=== PATIENT | male | born 1950 | race Caucasian/White ===

== ENCOUNTER 2020-02-07 09:44 | Emergency (ER) | payer MEDICARE, SELFPAY ==
[2020-02-07 09:53] VITALS: BP 123/76; PULSE 72; RESP 20; TEMP 37.1; O2SAT 100
--- NOTE | 2020-02-07 10:05 | ED.WOUNDLAC ---
HPI - Wound/Laceration General Chief Complaint: Wound/Laceration Stated Complaint: rt hand pos infection Time Seen by Provider: 02/07/20 10:23 Source: patient and RN notes reviewed Mode of arrival: ambulatory Limitations: no limitations History of Present Illness HPI narrative: 69-year-old male presents with concern for dog bite. He reports he was playing with a dog 2 days ago whose tooth cut his second digit of the right hand. Reports yesterday he noticed swelling and redness of the finger. He put ice on the finger and took ibuprofen. He denies fever, general malaise, aches, chills, sweats. Denies drainage from the wound. Related Data Home Medications Medication Instructions Recorded Confirmed Eye Vitamin 10/06/19 fluticasone propionate 50 2 spray NASAL DAILY PRN 11/28/19 02/07/20 mcg/actuation nasal spray,suspension Allergies Allergy/AdvReac Type Severity Reaction Status Date / Time Penicillins Allergy Unknown Unknown Verified 02/07/20 10:00 Review of Systems Review of Systems: Narrative: CONSTITUTIONAL: Denies malaise, chills, sweats, or fever. CARDIOVASCULAR: Denies chest pain, palpitations RESPIRATORY: Denies cough or dyspnea. GASTROINTESTINAL: Denies abdominal pain, nausea, vomiting, diarrhea SKIN: Reports swollen, red, tender second digit of the right hand. Reports puncture wound with a scab. MUSCULOSKELETAL: Denies myalgia. NEUROLOGIC: Denies numbness, weakness All systems reviewed & are unremarkable except as noted in HPI and below PMFSH Past Medical History Medical History (Updated 02/07/20 @ 10:31 by Fatuma Mclean NP) Acquired leg length discrepancy Arthritis of knee, right Hypertension Lymphoma Seizures Skull fracture Surgical History Surgical History Distal radius fracture (~10/06/19) H/O brain surgery History of appendectomy Hx of tonsillectomy Social History Social History Smoking status: Never smoker Second hand tobacco smoke exposure: No Alcohol intake: current Substance use: unknown Gender identity (if verbalized by the patient): Male Spiritual care concerns: No Comments At time of signature, agree with nursing past medical, surgical, social and family history. There is no relevant family history pertinent to the presenting complaint Exam Narrative: Exam Narrative: GENERAL: Well-appearing, well-nourished, and in no acute distress. HEAD: Normocephalic, atraumatic. EYES: PERRLA, conjunctivae clear NECK: Supple. CHEST: Speaks in full sentences. No respiratory distress. HEART: Regular rate and rhythm. Normal and equal peripheral pulses. EXTREMITIES: Right hand and digits of hand have normal strength and sensation. 5/5 strength with second digit flexion, extension. Range of motion normal. No clubbing, cyanosis, or edema noted. Tenderness to the second digit. Skin intact. Normal digital cascade with flexion of fingers, median, ulnar and radial nerve intact. Normal sensation of each side of finger. Can perform 'okay' sign, 'cross over finger test of index and middle fingers' and 'thumbs up' sign. No scissoring. Normal thumb opposition. Good capillary refill and radial pulse. Distal capillary refill ?3 seconds. SKIN: Warm, dry, no rash. Erythema, edema, tenderness, no induration noted to the second digit of the right hand. Less than 0.5cm scabbed wound noted near the PIP joint of the second digit of the right hand NEURO: Alert and oriented x3. Dorsal aspect of right hand and wrist with erythema, no tenderness, no edema, no induration. Mild red area extending into the lower forearm. PSYCH: Normal mood and affect Course Course Emergency Course: Discussed with patient to monitor red area on forearm, if he develops malaise, fever, chills, sweats or the area progresses he should go to the emergency room; if symptoms worsen or do not improve the next 24 hours he
== END 2020-02-07 10:46 | disposition home or self-care (01) ==
PROVIDERS: Emergency Provider Nurse Practitioner; PCP Family Medicine
DX: L08.9 Local infection of the skin and subcutaneous tissue, unspecified (principal); S61.451A Open bite of right hand, initial encounter; W54.0XXA Bitten by dog, initial encounter; M17.11 Unilateral primary osteoarthritis, right knee; I10 Essential (primary) hypertension; Z85.72 Personal history of non-Hodgkin lymphomas
CPT/HCPCS: 99213; G0463

== ENCOUNTER 2020-04-26 14:51 | Outpatient (CLI) | payer MEDICARE, SELFPAY ==
[2020-04-26 15:03] LABS: Basophils Percent Auto 0.7 % (0.2-1.2); Eosinophils Absolute Auto 0.2 K/mm3 (0-0.3); Eosinophils Percent Auto 3.7 % (0-4.4); Hematocrit 38.1 % (42.0-52.0); Hemoglobin 12.8 g/dL (14.0-18.0); Lymphocytes Absolute Auto 1.48 K/mm3 (0.9-3.2); Lymphocytes Percent Auto 36.9 % (18.3-44.2); Mean Corpuscular HGB Conc 33.6 g/dl (32-36); Mean Corpuscular Hemoglobin 30.1 pg (26-34); Mean Corpuscular Volume 89.6 fl (80-100); Mean Platelet Volume 9.9 fl (7.4-10.4); Monocytes Absolute Auto 0.4 K/mm3 (0.1-0.6); Monocytes Percent Auto 10.5 % (2.6-8.5); Neutrophils Absolute Auto 1.9 K/mm3 (1.3-6.7); Neutrophils Percent Auto 48.2 % (45.5-73.1); Platelet Count Result 156 k/mm3 (150-375); Red Blood Count 4.25 M/mm3 (4.6-6.20); Red Cell Distribution Width 13.7 % (11.5-14.5)
[2020-04-26 16:47] LABS: Alanine Aminotransferase 17 U/L (4-50); Albumin Level 4.3 g/dL (3.5-5.1); Alkaline Phosphatase 89 U/L (38-126); Aspartate Amino Transferase 24 U/L (17-59); Bilirubin,Total 0.4 mg/dL (0.2-1.3); Blood Urea Nitrogen 18 mg/dL (9-20); Calcium 9.1 mg/dL (8.4-10.2); Carbon Dioxide 26 mmol/L (22-30); Chloride 103 mmol/L (98-107); Estimated Glomerular Filt Rate > 60; Glucose 96 mg/dL (75-110); Lactate Dehydrogenase 486 U/L (313-618); Potassium 4.6 mmol/L (3.4-5.0); Sodium 136 mmol/L (137-145)
== END 2020-04-26 14:52 | disposition home or self-care (01) ==
LOC: ANHLAB 14:53
PROVIDERS: PCP Family Medicine; Visit Provider Internal Medicine Hematology & Oncology
DX: C85.13 Unspecified B-cell lymphoma, intra-abdominal lymph nodes (principal)
CPT/HCPCS: 36415; 80053; 83615; 85025

== ENCOUNTER 2020-05-26 10:36 | Outpatient (CLI) | payer MEDICARE, SELFPAY ==
--- NOTE | ~2020-05-26 | US_ITS ---
EXAMINATION: US soft tissue groin RT DATE: 05/26/2020 12:17 INDICATION: Lower abdominal pain and palpable abnormality at the right inguinal region TECHNIQUE: Multiple grayscale and Doppler ultrasound images of the right groin were obtained includin g imaging during Valsalva. COMPARISON: None FINDINGS: No evident inguinal hernia. The right common femoral artery and vein appear normal. No abnormal luke s or fluid collections identified at the region of concern. IMPRESSION: 1. No etiology identified for pain and palpable abnormality at the right inguinal region. Specificall y no right inguinal hernia or abnormal mass or fluid collections. Reviewed, dictated and finalized at location A. IMPRESSION: 1. No etiology identified for pain and palpable abnormality at the right inguin al region. Specifically no right inguinal hernia or abnormal mass or fluid rigoberto ections.
== END 2020-05-26 10:37 | disposition home or self-care (01) ==
LOC: ANHIMG 10:41
PROVIDERS: PCP Family Medicine; Visit Provider Family Medicine
DX: R10.30 Lower abdominal pain, unspecified (principal); M79.89 Other specified soft tissue disorders
CPT/HCPCS: 76882

== ENCOUNTER 2020-10-09 00:38 | Outpatient (CLI) | payer MEDICARE, SELFPAY ==
[2020-10-09 21:19] LABS: SARS-CoV-2 RNA PCR Negative
== END 2020-10-09 00:39 | disposition home or self-care (01) ==
LOC: ANHCOVIDDT 00:38
PROVIDERS: PCP Family Medicine; Visit Provider Surgery
DX: Z01.812 Encounter for preprocedural laboratory examination (principal); Z20.828 Contact with and (suspected) exposure to other viral communicable diseases
CPT/HCPCS: 87635; C9803; U0003

== ENCOUNTER 2020-10-11 08:12 | Outpatient (CLI) | payer MEDICARE, SELFPAY ==
--- NOTE | 2020-10-11 08:14 | ECG_ITS ---
Measurements Intervals [place] Rate: 61 P: 62 CO: 177 QRS: 39 QRSD: 101 T: 47 QT: 423 QTc: 429 Interpretive Statements SINUS RHYTHM DELAYED PRECORDIAL R/S TRANSITION BORDERLINE ECG Electronically Signed On 10-11-2020 8:39:42 GREEN FEED ATTENDANT by Mohinder Bo D.O.
== END 2020-10-11 08:13 | disposition home or self-care (01) ==
PROVIDERS: PCP Family Medicine; Visit Provider Surgery
DX: Z01.818 Encounter for other preprocedural examination (principal); K40.90 Unilateral inguinal hernia, without obstruction or gangrene, not specified as recurrent
CPT/HCPCS: 36415; 86850; 86900; 86901; 93005

== ENCOUNTER 2020-10-13 01:08 | Day surgery (SDC) | payer MEDICARE, SELFPAY ==
[2020-10-04 13:04] VITALS: BMI 23.0
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
[2020-10-13] VITALS (12 sets, daily range): BP systolic 102–153; BP diastolic 50–82; PULSE 56–65; RESP 14–18; TEMP 35.9–36.2; O2SAT 94–100
[2020-10-13] MEDS: LACTATED RINGERS 1,000 ML 30 ML IV CONT ×2 (08:10→11:08)
[2020-10-13] MEDS: ACETAMINOPHEN 500 MG TABLET 1000 MG PO (08:23)
[2020-10-13] MEDS: KETOROLAC 15 MG/ML VIAL (*BKC) IV PUSH (08:25)
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
--- NOTE | 2020-10-13 08:43 | WPDHPUPDATE1 ---
History and Physical Update Update Date/Time: 10/13/20 08:43 History and Physical has been reviewed, including an updated exam of the patient. There are NO changes in the patient's condition. Risks, benefits, and alternatives have been discussed and questions answered. Patient agrees to proceed with procedure.
[2020-10-13] MEDS: CLINDAMYCIN 900 MG/D5W 50 ML 900 MG/50 ML PIGGYBACK 50 MG IVPB (09:35)
--- NOTE | 2020-10-13 10:58 | PM.PROC ---
Procedure Note - Detailed Date of procedure: 10/13/20 Pre-op diagnosis: Right Inguinal Hernia Post-op diagnosis: same (Indirect RIH) Procedure performed: Laparoscopic right inguinal hernia repair with Progrip mesh, da Javad assisted Description of procedure: Procedure as well as risks, benefits, and alternatives were discussed with the patient. Written consent was obtained and placed in chart prior to procedure. Patient was brought back to surgical suite. He was placed supine on operating table. Time-out was done to confirm patient and procedure. He was then intubated by Anesthesia Department. His abdomen was prepped and draped in sterile fashion using chlorhexidine prep. 0.5% bupivacaine with epinephrine was infiltrated at each location for incision. A 12 millimeter transverse incision was made just superior to the umbilicus using a 15 blade scalpel. Blunt dissection was carried out down to the linea alba. A vertical incision was made at the linea alba using a 15 blade scalpel. The peritoneum was then bluntly entered. A 12 millimeter trocar was inserted and carbon dioxide insufflation was used to create a pneumoperitoneum. A camera was inserted and the abdominal cavity was inspected. The patient was placed in slight Trendelenburg position. An 8 millimeter incision was made on the right lateral abdomen and an 8 millimeter trocar was inserted under direct visualization. Another 8 millimeter incision was made in the left lateral abdomen and an 8 millimeter trocar was inserted under direct visualization. The robotic arms were brought up to the patient's bedside and secured to the ports. The camera and instruments were inserted. I then moved over to the robotic console and took control of the camera and instruments. After careful inspection of the abdominal cavity, I began scoring the peritoneum along the right lower quadrant using scissors with electrocautery. The preperitoneal plane was entered and this was carefully dissected caudally along the inferior epigastric vessels. Careful dissection with scissors with electrocautery and blunt dissection was used to continue this dissection. I dissected far enough laterally to allow for mesh placement, and also dissected medially to identify the pubic arch and Hector's ligament. The hernia sac was identified and carefully dissected posteriorly. The cord contents were also identified and the peritoneum was carefully dissected far enough posteriorly to allow for mesh placement. Once an adequate pocket was created, I then placed the mesh within the preperitoneal pocket and carefully unfolded it. The mesh was centered on the hernia defect with adequate overlap circumferentially. The inferior edge of the mesh was inspected to ensure that it was far enough away from the peritoneal edge. The mesh appeared in proper position overlying the entire myopectineal orifice. The peritoneum was then closed over the mesh using a 3-0 V-lock running absorbable suture. The robotic instruments were removed. The robotic arms were disengaged from the ports and moved away from the bedside. The patient was flattened out in bed, the ports were removed under direct visualization, and the pneumoperitoneum was released. The fascia of the umbilical incision was approximated using an 0 Vicryl [id number] suture. The skin of the incisions was approximated using 4-0 Monocryl subcuticular suture, and Exofin glue was applied on top. The patient was awakened from anesthesia, extubated, and transferred to recovery. Implants: Progrip Mesh 10cm x 15cm Anesthesia: GETA and local (0.5% bupivicaine with epi) Surgeon: Fuad Murray DO Estimated blood loss (mL): 5 Drains: No Packing: No Pathology: none sent Complications: No immediate complications Condition: stable Disposition: same day Findings: Laparoscopic right inguinal hernia repair was performed. The patient was found to have a moderate-sized indirect right inguinal hernia.
--- NOTE | 2020-10-13 11:46 | SUR.PHASEI ---
1143 - dr. sage at bedside talking with pt.
--- NOTE | 2020-10-13 13:36 | SUR.PHASEII ---
1315- ambulated pt to bathroom. Gait steady. Passed only short dribble of urine. Assisted back to room.
--- NOTE | 2020-10-13 13:37 | SUR.PHASEII ---
1330- attempted to contact pt . Left message with her voicemail.
--- NOTE | 2020-10-13 14:49 | SUR.PHASEII ---
1430- voided a daphne of 3 times. pt dressed and waiting for .
== END 2020-10-13 14:45 | disposition home or self-care (01) ==
PROVIDERS: PCP Family Medicine; Visit Provider Surgery
PROC: 8E0Y4CZ Robotic Assisted Procedure of Lower Extremity, Percutaneous Endoscopic Approach (ICD-10-PCS; CPT 49650; principal; 2020-10-13 09:45)
DX: K40.90 Unilateral inguinal hernia, without obstruction or gangrene, not specified as recurrent (principal); I10 Essential (primary) hypertension; G40.909 Epilepsy, unspecified, not intractable, without status epilepticus; Z85.72 Personal history of non-Hodgkin lymphomas; Z92.21 Personal history of antineoplastic chemotherapy
CPT/HCPCS: 49650; S2900; 36415; 86850; 86900; 86901; 87635; 93005; A9270; C1781; C9803; J1100; J1170; J1885; J2250; J2370; J2405; J2704; J2710; J3010; J7120; U0003

== ENCOUNTER 2020-10-15 18:48 | Emergency (ER) | payer MEDICARE, SELFPAY ==
--- NOTE | ~2020-10-15 | XR_ITS ---
EXAMINATION: XR abdomen obstructive series DATE: 10/15/2020 19:47 INDICATION: Abdominal pain and difficulty urinating. Constipation. TECHNIQUE: Frontal supine and upright views of the abdomen were obtained. COMPARISON: CT dated 04/14/2019 FINDINGS: Large amount of stool scattered throughout the colon extending to the rectum consistent with given hi story of constipation. No dilated gas-filled loops of bowel. No free intraperitoneal gas. Calcified n odule at the left lower lung zone consistent with old granulomatous disease. Cardiomegaly. Chronic ri ght pelvic fractures. Partially visualized antegrade intramedullary bill and interlocking intratrochan teric screw fixation at the proximal left femur. There are couple additional lag screws transfixing t he left femoral neck where there is an additional old healed fracture. Multiple old bilateral rib fra ctures. IMPRESSION: 1. Large amount of colonic stool consistent with given history of constipation. 2. Cardiomegaly. Reviewed, dictated and finalized at [facility]. TAL ENGINEER
[2020-10-15 18:51] VITALS: BP 167/96; PULSE 54; RESP 18; TEMP 35.7; O2SAT 97
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
[2020-10-15 19:41] LABS: Basophils Percent Auto 0.1 % (0.2-1.2); Hemoglobin 13.3 g/dL (14.0-18.0); Immature Granulocyte Absolute 0.03 K/mm3 (0.00-0.031); Immature Granulocyte Percent A 0.4 % (0-0.5); Lymphocytes Absolute Auto 0.68 K/mm3 (0.9-3.2); Lymphocytes Percent Auto 8.8 % (18.3-44.2); Mean Corpuscular HGB Conc 34.1 g/dl (32-36); Mean Corpuscular Hemoglobin 30.6 pg (26-34); Mean Corpuscular Volume 89.7 fl (80-100); Mean Platelet Volume 10.2 fl (7.4-10.4); Monocytes Absolute Auto 0.4 K/mm3 (0.1-0.6); Monocytes Percent Auto 5.3 % (2.6-8.5); Neutrophils Absolute Auto 6.6 K/mm3 (1.3-6.7); Neutrophils Percent Auto 85.4 % (45.5-73.1); Platelet Count Result 204 k/mm3 (150-375); Red Blood Count 4.35 M/mm3 (4.6-6.20); Red Cell Distribution Width 13.3 % (11.5-14.5); White Blood Count 7.8 K/mm3 (4.5-10.0)
[2020-10-15 19:44] LABS: Add Urine Microscopic? YES; Appearance Urine Clear (Clear); Bilirubin Urine Negative (Negative); Blood Urine Negative (Negative); Color Urine Yellow (Yellow); Glucose Urine UA Negative (Negative); Ketones Urine Negative (Negative); Leukocyte Esterase Ur Negative LEU/UL (Negative); Mucus Urine Rare /lpf; Nitrate Urine Negative (Negative); Protein Urine Negative (Negative); Specific Grav Ur 1.016 (1.001-1.035); Urobilinogen Urine Negative mg/dL (<2.0); WBC Urine 0-3 /hpf
[2020-10-15 19:54] LABS: Alanine Aminotransferase 30 U/L (4-50); Albumin Level 4.3 g/dL (3.5-5.1); Alkaline Phosphatase 98 U/L (38-126); Anion Gap 8 mmol/L (8-16); Aspartate Amino Transferase 25 U/L (17-59); Bilirubin,Total 0.4 mg/dL (0.2-1.3); Blood Urea Nitrogen 15 mg/dL (9-20); Calcium 9.4 mg/dL (8.4-10.2); Carbon Dioxide 30 mmol/L (22-30); Chloride 100 mmol/L (98-107); Estimated CRCL calculation 102 ml/min; Estimated Glomerular Filt Rate > 60; Glucose 149 mg/dL (75-110); Potassium 4.3 mmol/L (3.4-5.0); Sodium 138 mmol/L (137-145)
[2020-10-15 21:30] VITALS: BP 137/65; PULSE 60; RESP 18; O2SAT 98
--- NOTE | 2020-10-15 21:45 | PC.NURSE ---
gravity bag exchanged for leg bag. teaching to patient on usage done and demonstrated by patient
[2020-10-15] MEDS: TAMSULOSIN HCL 0.4 MG CAPSULE PO (21:50)
== END 2020-10-15 21:55 | disposition home or self-care (01) ==
PROVIDERS: Emergency Provider Emergency Medicine; PCP Family Medicine
DX: R33.9 Retention of urine, unspecified (principal); K59.00 Constipation, unspecified; M17.11 Unilateral primary osteoarthritis, right knee; I10 Essential (primary) hypertension; Z85.72 Personal history of non-Hodgkin lymphomas; I51.7 Cardiomegaly; Z98.890 Other specified postprocedural states
CPT/HCPCS: 36415; 74019; 80053; 81001; 85025; 99283; A9270

== ENCOUNTER 2021-01-13 08:40 | Outpatient (CLI) | payer MEDICARE, SELFPAY ==
--- NOTE | ~2021-01-13 | XR_ITS ---
EXAMINATION: XR abdomen/kub 1V INDICATION: Microscopic hematuria TECHNIQUE: Supine views of the abdomen were obtained on 2 radiographs. COMPARISON: 10/15/2020 FINDINGS: There is a large volume of colonic stool. No definite urolithiasis is identified. Orthopedi c hardware is noted in the left hip. The lung bases are clear. Chronic right pelvic fractures are aga in noted. There is moderate lumbar spondylosis. IMPRESSION: 1. No radiographic correlate for the patient's symptoms. 2. Constipation. Reviewed, dictated and finalized at location [facility]. CULTURE FARM MANAGER
--- NOTE | ~2021-01-13 | CT_ITS ---
EXAMINATION: CT abdomen pelvis wo/w con DATE: 01/13/2021 09:54 INDICATION: Microscopic hematuria TECHNIQUE: Computed tomography (CT) of the abdomen and pelvis was performed without and subsequently with 130 cc Omnipaque 350 intravenous contrast. Automated exposure control and iterative reconstructi on technique were employed. Exam dose: 791.72 mGy-cm total exam DLP. COMPARISON: January 13, 2021 KUB 04/14/2019 CT abdomen pelvis FINDINGS: There are bilateral fat-containing foramen of Bochdalek hernias. Mild bibasilar discoid ate lectasis or scarring. Normal heart size. No pericardial or pleural effusion. The liver, gallbladder, bile ducts, pancreas, pancreatic duct and spleen are unremarkable. Normal morphology of the adrenal glands. No urinary tract calculus or hydroureteronephrosis. No renal space occupying mass lesion or filling d efect of the renal collecting systems, ureters or urinary bladder is evident. There are bilateral ure teral jets. Minimal prostate calcification. Normal caliber of the abdominal aorta. No intraperitoneal or retroperitoneal or pelvic mass lesion or adenopathy or ascites. No bowel obstruction, bowel wall thickening, pneumatosis or intraperitoneal free air. Old healed left rib fractures. Old right healed pelvic fracture deformities. Compression screw and intramedullary bill of proximal le ft femur. Ankylosis at the right sacroiliac joint. IMPRESSION: No cause for microhematuria identified Bilateral fat-containing foramen of Bochdalek hernias Old right pelvic and left rib healed fractures Reviewed, dictated and finalized at [facility]. Reviewed, dictated and finalized at location [facility]. CLUB ATTENDANT
[2021-01-13 09:15] LABS: Estimated Glomerular Filt Rate > 60
== END 2021-01-13 08:41 | disposition home or self-care (01) ==
PROVIDERS: PCP Family Medicine; Visit Provider Urology
DX: R31.29 Other microscopic hematuria (principal); K44.9 Diaphragmatic hernia without obstruction or gangrene; K59.00 Constipation, unspecified
CPT/HCPCS: 74018; 74178; Q9967

== ENCOUNTER 2021-03-16 07:45 | Outpatient (CLI) | payer MEDICARE, SELFPAY ==
--- NOTE | 2021-03-16 07:53 | ECHO_ITS ---
Patient Info Name: Mike Montana Age: 70 years : 1950 Gender: Male Ht: 70 in Wt: 165 lbs BSA: 1.93 m2 HR: 66 bpm BP: 135 / 80 mmHg Heart Rhythm: Sinus Rhythm Exam Date: 03/16/2021 8:03 AM Exam Location: [facility] Patient Status: Outpatient Admit Date: 03/16/2021 Staff Ordering Physician: Franko Ng MD Soap Chipper: Tosha Sahni RDCS Attending Provider: Franko Ng MD Exam Type: CA echo doppler color flow Study Info Indications R01.1 - Cardiac murmur, unspecified Complete two-dimensional, color flow and Doppler transthoracic echocardiogram is performed. Summary 1. Complete two-dimensional, color flow and Doppler transthoracic echocardiogram is performed. 2. Left ventricular chamber dimension is normal. 3. Left ventricular systolic function is normal, estimated at 65-70%. 4. There is mildly increased left ventricular wall thickness. 5. The left ventricular diastolic function is grade I diastolic dysfunction. 6. E/e' 8 is minimally elevated. 7. Left atrial chamber dimension is moderately enlarged. 8. Right atrial chamber dimension is mildly enlarged. 9. There is mild aortic valve sclerosis. 10. There is trace aortic valve regurgitation. 11. There is mild mitral valve regurgitation. 12. There is moderate tricuspid valve regurgitation. 13. No pulmonary hypertension, estimated pulmonary arterial systolic pressure is 39 mmHg. 14. There is trace pulmonic regurgitation. Left Ventricle E/e' 8 is minimally elevated. Left ventricular chamber dimension is normal. Left ventricular systolic function is normal, estimated at 65-70%. There is mildly increased left ventricular wall thickness. The left ventricular diastolic function is grade I diastolic dysfunction. Right Ventricle Right ventricular chamber dimension is normal. Right ventricular systolic function is normal. Left Atria Left atrial chamber dimension is moderately enlarged. Right Atria Right atrial chamber dimension is mildly enlarged. Aortic Valve The aortic valve is trileaflet. There is mild aortic valve sclerosis. There is no aortic valve stenosis. There is trace aortic valve regurgitation. Pulmonic Valve There is trace pulmonic regurgitation. Mitral Valve There is no mitral valve stenosis. There is mild mitral valve regurgitation. Tricuspid Valve There is moderate tricuspid valve regurgitation. No pulmonary hypertension, estimated pulmonary arterial systolic pressure is 39 mmHg. Pericardium/Pleural There is no pericardial effusion. Inferior Vena Cava Normal inferior vena cava with >50% collapse upon inspiration consistent with normal right atrial pressure, 5 mmHg. Aorta The aortic root size at the sinus of Valsalva is normal. Left Ventricular Outflow Tract Name Value Normal LVOT 2D LVOT Diameter 2.5 cm LVOT Doppler LVOT Peak Gradient 5 mmHg LVOT Mean Gradient 2 mmHg LVOT VTI 27 cm LVOT VTI/AV VTI Ratio 0.8 LVOT Stroke Volume 134 ml
== END 2021-03-16 07:46 | disposition home or self-care (01) ==
PROVIDERS: PCP Family Medicine; Visit Provider Family Medicine
DX: R01.1 Cardiac murmur, unspecified (principal); I34.0 Nonrheumatic mitral (valve) insufficiency; I36.1 Nonrheumatic tricuspid (valve) insufficiency; I10 Essential (primary) hypertension
CPT/HCPCS: 93306

== ENCOUNTER 2021-07-12 02:10 | Emergency (ER) | payer MEDICARE, SELFPAY ==
[2021-07-12] VITALS (43 sets, daily range): BP systolic 103–158; BP diastolic 55–87; PULSE 56–74; RESP 13–18; TEMP 36.3; O2SAT 95–100
--- NOTE | ~2021-07-12 | XR_ITS ---
[[id number] ] INDICATION: Right rib pain after fall TECHNIQUE: Frontal projection of the upper right ribs, frontal projection of the lower right ribs, ob lique projection of all the right ribs, frontal inspiratory chest x-ray for interpretation. FINDINGS: There are acute right eighth, ninth, 10th, 11th and 12th rib fractures. No pneumothorax id entified. Right basilar atelectasis. Heart size normal.. There are no soft tissue abnormality seen. IMPRESSION: 1: Acute right eighth-12th rib fractures. Reviewed, dictated and finalized at location [facility].
--- NOTE | ~2021-07-12 | CT_ITS ---
EXAMINATION: CT brain wo con DATE: 07/12/2021 04:09 INDICATION: Status post fall. Chest pain. History of brain surgery. TECHNIQUE: Computed tomography (CT) of the head was performed without intravenous contrast. The dose- length product was 681.00 mGy-cm. Automated exposure control and iterative reconstruction technique w ere employed. COMPARISON: Pet/CT dated 01/15/2018 FINDINGS: Surgical changes of left frontal craniotomy with adjacent encephalomalacia. Mild generalize d atrophy. There is intracranial atherosclerosis. No acute intracranial hemorrhage, infarction, mass or mass effect. No ventriculomegaly or midline shift. Basilar cisterns are patent. Paranasal sinuses and mastoids are pneumatized. No depressed skull fractures. IMPRESSION: 1. No acute intracranial abnormality. Reviewed, dictated and finalized at location [facility].
--- NOTE | ~2021-07-12 | XR_ITS ---
XR wrist RT min 3V 07/12/2021 03:13 Indication: Right wrist pain after fall Procedure: 4 views right wrist Comparison: 12/03/2019 Findings: There is a healed distal radial metaphyseal fracture. There are degenerative changes of the radiocarpal joint. There is polyarticular osteoarthritis of the carpal joints, first carpometacarpal and MCP joints. Osteopenia. No acute fracture is identified. No significant soft tissue abnormality. Impression: 1: No acute fracture. Reviewed, dictated and finalized at location [facility]. Impression: 1: No acute fracture.
--- NOTE | ~2021-07-12 | CT_ITS ---
EXAMINATION: CT cervical spine wo con DATE: 07/12/2021 04:10 INDICATION: Status post fall. Neck pain. TECHNIQUE: Computed tomography (CT) of the cervical spine was performed without intravenous contrast. The dose-length product was 467 mGy-cm. Automated exposure control and iterative reconstruction tech nique were employed. COMPARISON: None FINDINGS: There is biapical pleural thickening/scarring. There is intracranial atherosclerosis. No ac mohegan fracture, subluxation or dislocation. There is carotid atherosclerosis. There is degenerative dis c disease at all cervical levels except C2-3. There is mild multilevel uncinate and facet degenerativ e change. There is carotid atherosclerosis. No evidence for perched facet. Odontoid process within no rmal limits. IMPRESSION: 1. No acute abnormality of the cervical spine. 2: Moderate cervical spondylosis. Reviewed, dictated and finalized at location A.
--- NOTE | ~2021-07-12 | XR_ITS ---
XR shoulder RT min 2V 07/12/2021 03:13 Indication: Right shoulder pain after fall Procedure: 4 views right shoulder Comparison: No prior studies for comparison. Findings: No fracture, subluxation or dislocation. Osteopenia. Soft tissues are unremarkable. Visuali zed lung parenchyma is unremarkable. Impression: 1: No acute bone or joint abnormality. Reviewed, dictated and finalized at location A. Impression: 1: No acute bone or joint abnormality.
--- NOTE | ~2021-07-12 | CT_ITS ---
EXAMINATION: CT chest abdomen pelvis w con DATE: 07/12/2021 07:47 CDT INDICATION: Trauma. Patient fell downstairs. TECHNIQUE: Computed tomography (CT) of the chest, abdomen, and pelvis was performed with 100 cc Omnip aque 350 intravenous contrast. The dose-length product was 521.09 mGy-cm. Automated exposure control and iterative reconstruction technique were employed. COMPARISON: CT dated 01/13/2021 FINDINGS: CHEST CT: There are acute fractures of the right ninth-12th ribs posteriorly. Trace right pleural effusion/hemo thorax. No pneumothorax. Right basilar dependent atelectasis. No endobronchial lesions. There are a f ew scattered calcified granulomas. There is left upper lobe scarring. There is apical pleural thicken ing/scarring. There is atherosclerosis. Cardiomegaly. No thoracic lymphadenopathy. ABDOMEN/PELVIS CT: Fatty infiltration of the liver. The spleen, pancreas, adrenal glands and kidneys are unremarkable. G allbladder is present. No evidence for aortic aneurysm. No abdominal lymphadenopathy. Small hiatal he rnia. There are chronic fractures of the right superior and inferior pubic rami. There are dynamic co mpression screws transfixing the left femoral neck. There is moderate osteoarthritis of the hips. IMPRESSION: 1. Multiple acute right posterior rib fractures ninth-12th ribs. Small right pleural effusion/hemotho rax. Reviewed, dictated and finalized at location A. IMPRESSION: 1. Multiple acute right posterior rib fractures ninth-12th ribs. Small right pl eural effusion/hemothorax.
--- NOTE | ~2021-07-12 | CT_ITS ---
EXAMINATION: CT thoracic lumbar wo con DATE: 07/12/2021 08:59 INDICATION: Spine injury. Chest and abdominal pain. TECHNIQUE: Computed tomography (CT) of the thoracic and lumbar spine was performed without intravenou s contrast. Automated exposure control and iterative reconstruction technique were employed. The dose -length product was 00.00 mGy-cm. COMPARISON: CT chest, abdomen, and pelvis 07/12/2021, CT abdomen and pelvis 01/13/2021 FINDINGS: CT THORACIC SPINE: There is a trace right pleural effusion. There are old healed left rib fractures. There are acute fractures of right 10th-12th ribs. There is kyphosis of thoracic spine. There is mild chronic anterior wedging of T5-T12 vertebral bodies. There is severely decreased disc height at T7-T 8 and T8-T9. There is mildly decreased disc height at multiple levels. There is moderately decreased disc height at T5-T6 and T10-T11. There is multilevel facet joint osteoarthritis, mild at most levels . On the right, there is mild neural foraminal stenosis at T10-T11. There is mild central canal steno sis at T9-T10 and T10-T11. CT LUMBAR SPINE: There is 3 degrees levocurvature of lumbar spine. There is mild chronic anterior wed ging of L4 vertebral body. There is moderately decreased disc height at L2-L3, severely decreased dis c height at L3-L4, and mildly decreased disc height at L4-L5. There is interbody fusion at L5-S1. The re is ankylosis of right sacroiliac joint. The following disc levels are specifically discussed: L1-L2: The disc does not extend beyond the endplate margin. There is mild bilateral facet joint osteo arthritis. There is no neural foraminal stenosis. There is no central canal stenosis. L2-L3: The disc is bulging. There is mild bilateral facet joint osteoarthritis. There is moderate rig ht and mild left neural foraminal stenosis. There is mild central canal stenosis. L3-L4: The disc is bulging. There is moderate bilateral facet joint osteoarthritis. There is moderate bilateral neural foraminal stenosis. There is mild central canal stenosis. L4-L5: The disc is bulging. There is moderate bilateral facet joint osteoarthritis. There is moderate right and mild left neural foraminal stenosis. There is mild central canal stenosis. L5-S1: The disc does not extend beyond the endplate margin. There is mild bilateral facet joint hyper trophy. There is no neural foraminal stenosis. There is no central canal stenosis. IMPRESSION: 1. Acute fractures of right 10th-12th ribs. 2. Severe thoracic and lumbar spondylosis. 3. Thoracic kyphosis. Reviewed, dictated and finalized at location B.
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
[2021-07-12 03:58] LABS: Estimated CRCL calculation 77 ml/min; Estimated Glomerular Filt Rate > 60
[2021-07-12] MEDS: ONDANSETRON INJ 4 MG/2 ML VIAL IV PUSH (04:56)
[2021-07-12] MEDS: MORPHINE SULFATE (*CRX) 4 MG/ML INJ IV PUSH ×2 (04:56→08:26)
== END 2021-07-12 11:15 | disposition short-term general hospital (02) ==
PROVIDERS: Emergency Medicine; Emergency Provider Emergency Medicine; PCP Family Medicine
DX: S22.41XA Multiple fractures of ribs, right side, initial encounter for closed fracture (principal); R84.9 Unspecified abnormal finding in specimens from respiratory organs and thorax; M17.11 Unilateral primary osteoarthritis, right knee; N40.0 Benign prostatic hyperplasia without lower urinary tract symptoms; I10 Essential (primary) hypertension; Z85.72 Personal history of non-Hodgkin lymphomas; M47.812 Spondylosis without myelopathy or radiculopathy, cervical region; M47.816 Spondylosis without myelopathy or radiculopathy, lumbar region; M47.814 Spondylosis without myelopathy or radiculopathy, thoracic region; W10.9XXA Fall (on) (from) unspecified stairs and steps, initial encounter
CPT/HCPCS: 70450; 71101; 71260; 72125; 72128; 72131; 73030; 73110; 74177; 96374; 96375; 96376; 99285; J2270; J2405; Q9967

== ENCOUNTER → 2021-08-12 17:05 | Outpatient (CLI) | payer MEDICARE, SELFPAY ==
--- NOTE | ~2021-08-12 | XR_ITS ---
XR chest 2V DATE: 08/12/2021 19:05 INDICATION: Multiple right rib fractures TECHNIQUE: 2 views COMPARISON: 07/12/2021 CT chest abdomen pelvis FINDINGS: Displaced lateral right rib fractures are noted at the ninth, 10th ribs a minimum. There is elevation of the right diaphragm, mild right pleural effusion but no right pneumothorax. There is mi ld infiltrate or atelectasis in the right lower lung. Diffuse osteopenia. Heart size is borderline. Aortic calcification and minimal unfolding. The left lung is clear. No left pleural effusion or pneumothorax. IMPRESSION: Multiple displaced right rib fractures, associated mild right pleural effusion, elevated right diaphragm and right basilar atelectasis Reviewed, dictated and finalized at location A. IMPRESSION: Multiple displaced right rib fractures, associated mild right pleur al effusion, elevated right diaphragm and right basilar atelectasis
== END ==
PROVIDERS: PCP Family Medicine
DX: S22.41XD Multiple fractures of ribs, right side, subsequent encounter for fracture with routine healing (principal); J94.2 Hemothorax; J90 Pleural effusion, not elsewhere classified; J98.11 Atelectasis
CPT/HCPCS: 71046

== ENCOUNTER 2021-10-04 12:47 | Outpatient (CLI) | payer MEDICARE, SELFPAY ==
--- NOTE | ~2021-10-04 | DEXA_ITS ---
Bone Density Report Name: Mike Montana Age: 70 Sex: Male Ethnicity: White Date of : 1950 Indication: prior fracture; cancer; Referring Provider: Franko Ng Study: Bone densitometry was performed. Exam Date: October 04, 2021 Accession number: [id number] Bone Density: Region BMD T-score Z-score Classification AP Spine (L1-L4) 0.718 -3.4 -2.5 Osteoporosis Femoral Neck (Right) 0.528 -3.0 -1.8 Osteoporosis Total Hip (Right) 0.571 -3.1 -2.4 Osteoporosis World Health Organization criteria for BMD impression classify patients as: Normal (T-score at or above -1.0), Osteopenia (T-score between -1.0 and -2.5), or Osteoporosis (T-score at or below -2.5). 10-year Fracture Risk: FRAX not reported because: Some T-score for Spine Total or Hip Total or Femoral Neck at or below -2.5 Clinical Information Provided by Patient: Has had a low trauma fracture Has used the following medications: Vitamin D Has the following medical conditions: Cancer Patient maximum height was 69 No regular weight bearing exercise Drinks caffeinated beverages Impression: The patient has established osteoporosis, based on the Total Spine T-score and the existence of a prior fracture. The patient has risk factors, including: previous fracture. Discussion: HIGH RISK OF FRACTURE. BONE DENSITY IS UNDESIRABLY LOW AT ONE OR MORE SKELETAL SITES, CONSISTENT WITH OSTEOPOROSIS. This patient's lowest T-score, in a patient who has previously fractured, meets the World Health Organization's (WHO) criteria for severe osteoporosis. In untreated patients, the risk of osteoporotic fracture increases approximately two-fold for each 1.0 SD decrease in T-score. Low bone density is not the only risk factor for fracture; also consider factors such as patient's age, frailty or poor health, risk of falling, risk of injury, previous osteoporotic fracture, family history of osteoporosis, cigarette smoking, low body weight, etc. Not everyone with low bone mineral density has osteoporosis; osteomalacia and other metabolic bone disorders should also be considered. Patients who have osteoporosis should be evaluated for specific diseases and conditions (secondary causes) that may cause or contribute to bone loss. The National Osteoporosis Foundation (NOF) recommends pharmacologic intervention for men with BMD at this level (a T-score of -2.5 or below). The patient should follow a healthful lifestyle (good nutrition with adequate calcium and vitamin D, and appropriate weight-bearing exercise). Follow-Up: Consider repeating this study in 2 years to reassess this patient's status, or sooner if there is some new clinical indication. Reported by: MARCELINO on 10/04/2021 1:11:00 PM. Reviewed, dictated and finalized at location ASusu BRYAN
== END 2021-10-04 12:48 | disposition home or self-care (01) ==
LOC: ANHIMG 12:50
PROVIDERS: PCP Family Medicine; Visit Provider Family Medicine
DX: M81.0 Age-related osteoporosis without current pathological fracture (principal); S22.41XA Multiple fractures of ribs, right side, initial encounter for closed fracture; Z91.89 Other specified personal risk factors, not elsewhere classified
CPT/HCPCS: 77080

== ENCOUNTER → 2021-11-02 14:08 | Outpatient (CLI) | payer MEDICARE, SELFPAY ==
--- NOTE | ~2021-11-02 | CT_ITS ---
EXAMINATION: CT knee RT wo con DATE: 11/02/2021 14:37 INDICATION: Unilateral primary osteoarthritis of right knee. TECHNIQUE: Computed tomography (CT) of the right knee was performed without intravenous contrast. Aut omated exposure control and iterative reconstruction technique were employed. The dose-length product was 260.99 mGy-cm. Volume rendered 3-D reconstructions were created by the technologist under radiol ogist supervision. COMPARISON: Right knee radiographs 09/20/2021 FINDINGS: There is varus angulation at the knee. There is an old healed fracture deformity of lateral tibial plateau and proximal tibial metaphysis. There is severe osteoarthritis of medial, lateral, an d patellofemoral compartments. There is a small knee joint effusion. IMPRESSION: 1. Severe right knee osteoarthritis. 2. Small right knee joint effusion. Reviewed, dictated and finalized at location A. WBERRY GROWER
== END ==
PROVIDERS: PCP Family Medicine; Visit Provider Nurse Practitioner Family
DX: M17.11 Unilateral primary osteoarthritis, right knee (principal); M25.461 Effusion, right knee
CPT/HCPCS: 73700

== ENCOUNTER 2022-02-10 10:17 | Outpatient (CLI) | payer MEDICARE, SELFPAY ==
--- NOTE | 2022-02-10 11:32 | ECG_ITS ---
Measurements Intervals [place] Rate: 66 P: 56 [place]: 182 QRS: 26 QRSD: 101 T: 38 QT: 391 QTc: 410 Interpretive Statements SINUS RHYTHM WITH OCCASIONAL VENTRICULAR PREMATURE COMPLEXES POSSIBLE LEFT ATRIAL ENLARGEMENT [-0.1mV P WAVE IN V1/V2] COMPARED TO ECG 10/11/2020 08:51:34 NO SIGNIFICANT CHANGES Electronically Signed On 02-10-2022 16:14:11 CDT by Anibal Kelly M.D.
[2022-02-10 12:10] LABS: Basophils Percent Auto 0.7 % (0.2-1.2); Eosinophils Absolute Auto 0.2 K/mm3 (0-0.3); Eosinophils Percent Auto 4.5 % (0-4.4); Hematocrit 39.5 % (42.0-52.0); Immature Granulocyte Absolute 0.01 K/mm3 (0.00-0.031); Immature Granulocyte Percent A 0.2 % (0-0.5); Lymphocytes Absolute Auto 1.31 K/mm3 (0.9-3.2); Lymphocytes Percent Auto 32.6 % (18.3-44.2); Mean Corpuscular HGB Conc 32.9 g/dl (32-36); Mean Platelet Volume 10.1 fl (7.4-10.4); Monocytes Absolute Auto 0.5 K/mm3 (0.1-0.6); Monocytes Percent Auto 11.2 % (2.6-8.5); Neutrophils Percent Auto 50.8 % (45.5-73.1); Platelet Count Result 155 k/mm3 (150-375); Red Blood Count 4.49 M/mm3 (4.6-6.20); Red Cell Distribution Width 14.7 % (11.5-14.5)
[2022-02-10 12:12] LABS: Urine Cotinine NEGATIVE
[2022-02-10 12:14] LABS: Add Urine Microscopic? YES; Appearance Urine Clear (Clear); Bilirubin Urine Negative (Negative); Blood Urine Negative (Negative); Color Urine Yellow (Yellow); Glucose Urine UA Negative (Negative); Ketones Urine Negative (Negative); Leukocyte Esterase Ur Negative LEU/UL (Negative); Mucus Urine Rare /lpf; Nitrate Urine Negative (Negative); Protein Urine Negative (Negative); RBC Urine 0-2 /hpf (0-2); Specific Grav Ur 1.016 (1.001-1.035); Squamous Epithelial Cell Urine Rare /hpf (Few); Urobilinogen Urine Negative mg/dL (<2.0); WBC Urine 0-3 /hpf
[2022-02-10 12:18] LABS: Prothrombin Time 12.8 Seconds (11.1-14.7)
[2022-02-10 12:19] LABS: Partial Thromboplastin Time 27.2 SECONDS (22.3-36.8)
[2022-02-10 12:25] LABS: Albumin Level 4.3 g/dL (3.5-5.1); Anion Gap 5 mmol/L (8-16); Blood Urea Nitrogen 21 mg/dL (9-20); Calcium 9.1 mg/dL (8.4-10.2); Carbon Dioxide 31 mmol/L (22-30); Chloride 104 mmol/L (98-107); Estimated Glomerular Filt Rate > 60; Glucose 92 mg/dL (65-110); Potassium 4.6 mmol/L (3.4-5.0); Sodium 140 mmol/L (137-145)
[2022-02-10 12:34] LABS: Hemoglobin A1C 5.2 % (<5.7)
== END 2022-02-10 10:18 | disposition home or self-care (01) ==
PROVIDERS: PCP Family Medicine; Visit Provider Orthopaedic Surgery
DX: Z01.818 Encounter for other preprocedural examination (principal); M17.11 Unilateral primary osteoarthritis, right knee; R94.31 Abnormal electrocardiogram [ECG] [EKG]
CPT/HCPCS: 80048; 80307; 81001; 82040; 83036; 85025; 85610; 85730; 86850; 86900; 86901; 87081; 93005

== ENCOUNTER 2022-02-13 13:32 | Outpatient (CLI) | payer MEDICARE, SELFPAY ==
[2022-02-13 14:03] LABS: Phenytoin Dilantin 13 ug/mL (10-20)
== END 2022-02-13 13:33 | disposition home or self-care (01) ==
LOC: ANHSURGERY 13:34
PROVIDERS: Anesthesiology; PCP Family Medicine; Visit Provider Orthopaedic Surgery
DX: M17.11 Unilateral primary osteoarthritis, right knee (principal); Z01.818 Encounter for other preprocedural examination
CPT/HCPCS: 36415; 80185

== ENCOUNTER 2022-02-23 18:33 | Observation (INO) | payer MEDICARE, SELFPAY ==
[2022-02-10 10:37] VITALS: BP 136/81; PULSE 62; RESP 16; TEMP 36.5; O2SAT 97; BMI 27.1
--- NOTE | 2022-02-10 10:59 | PC.NURSE ---
Report to the Outpatient Waiting Room, entrance under the green pavilion located off [facility], at time _6:00AM on date __02/22/22 . OR Time: ___7:30AM . - You and your visitor will be asked a series of questions to screen for COVID 19 for your protection. - A mask is required within the hospital. Preoperative COVID Testing Requirements: No COVID Test needed if: (proof is required; if not received patient will have Rapid Test prior to entry) - Patient has received COVID Vaccine at least 14 days prior to procedure date or - Patient has positive COVID test result within last 90 days of surgery date. COVID Test needed if above criteria is not met If not COVID vaccinated a COVID test must be conducted within 72 hours of surgery and patient is asked to isolate self from time of testing until procedure. You will go to the [facility] for your COVID testing. The [facility] site is located at the corner of [address] [facility]. You will only be called if COVID results are positive and your surgeon may reschedule your elective surgery date. Patients may have clear liquids (water, carbonated beverages, clear teas, apple juice) until 3 hours prior to surgery with a maximum of 20 ounces. - No food from midnight until time of surgery - Infants may have breast milk until 4 hours before surgery, formula 6 hours prior to surgery. - Children will be allowed to drink immediately following surgery. If applicable, please bring a bottle or sippy cup to assist with drinking. Juice, water, soda, and popsicles are readily available. For infants on formula, please bring formula the day of surgery. Pacifiers are allowed. Take the following medications with a SIP of water the morning of surgery: ___PHENOBARBITAL & PHENYTOIN Medications to discontinue per physician___HOLD ALL VITAMINS/SUPPLEMENT 3 DAYS PRE-OP last dose___02/18/22 Please no make-up, nail pakistani, hairspray, perfume, deodorant, or body powder the day of surgery. No jewelry (including any body piercings) or valuables the day of surgery, leave them at home. Please take a shower or bath the night before, or the morning of, surgery with an antibacterial soap. Wear comfortable, loose fitting clothing. Children are encouraged to wear pajamas. - Jewelry must be removed prior to entering the operating room. Rings and piercings that are not removed may be cut off. - The hospital will not accept responsibility for valuables. - Please leave all valuables, including medications, at home the day of surgery. If you are going home after surgery, a licensed boat driver must drive you home. - NO public transportation without another adult. - We recommend that an adult stay with you for 24 hours following discharge. - We also recommend that you do not drive, make important decision, drink alcoholic beverages, or take any drugs that were not prescribed by your health care provider for at least 24 hours after your discharge time. For Pediatric surgeries, we recommend two adults accompany the child home (only one inside the building at this time). One visitor will be allowed to accompany the patient into the hospital. Patients visitor will be instructed to remain with patient at all times or leave the building. We will allow the visitor to come back to the postoperative area when patient is ready. Follow any additional instructions given to you from your surgeon. Telephone instructions given to ___PATIENT and asked if any additional questions and then verbalized understanding. Patient advised to call surgeon office or pre surgery nurse liaison [phone] if any additional questions.
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
--- NOTE | 2022-02-21 15:32 | WPDANESPNB ---
Anes - Peripheral Nerve Block Date/Time: 02/21/22 15:32 I have discussed with the patient/family/POA the placement of a peripheral nerve block for post-operative pain management, including associated risks, benefits, complications, and side effects. Alternative methods of post-operative analgesia were detailed. Questions were solicited and answers provided to the satisfaction of the patient/family/POA. Time-Out: A pre-procedural Time-Out was completed immediately before starting the procedure and confirmed: Patient Identification, Site, Procedure, Patient Position and the Availability of Requisite Equipment. Clinical Indications: Acute post-operative pain management requested by the operative surgeon. Nerve Block Insertion Note Needle: 22 gauge, stimulating, insulated echogenic needle.
[2022-02-22] VITALS (14 sets, daily range): BP systolic 111–146; BP diastolic 62–91; PULSE 70–78; RESP 12–20; TEMP 36.2–37.2; O2SAT 95–100
[2022-02-22] MEDS: ACETAMINOPHEN 500 MG TABLET 1000 MG PO (06:33)
[2022-02-22] MEDS: LACTATED RINGERS 1,000 ML 30 ML IV CONT ×2 (07:09→10:44)
[2022-02-22] MEDS: TRANEXAMIC ACID 1,000MG/ISO100 1,000 MG/100 ML BAG 200 MG IVPB (07:10)
--- NOTE | 2022-02-22 07:22 | WPDHPUPDATE1 ---
History and Physical Update Update Date/Time: 02/22/22 07:22 History and Physical has been reviewed, including an updated exam of the patient. There are NO changes in the patient's condition. Risks, benefits, and alternatives have been discussed and questions answered. Patient agrees to proceed with procedure.
[2022-02-22] MEDS: ceFAZolin 2 GM/D5W 50 ML 2 GM/50 ML BAG IVPB ×3 (07:33→23:50)
[2022-02-22] MEDS: GENTAMICIN BONE CEMENT REFOBACIN 1 EACH TOPICAL (08:23)
[2022-02-22] MEDS: TRANEXAMIC ACID 1,000 MG/10 ML AMPUL 1000 MG IV PUSH (09:54)
--- NOTE | 2022-02-22 11:12 | WPDANESPNB ---
Anes - Peripheral Nerve Block Date/Time: 02/22/22 11:12 I have discussed with the patient/family/POA the placement of a peripheral nerve block for post-operative pain management, including associated risks, benefits, complications, and side effects. Alternative methods of post-operative analgesia were detailed. Questions were solicited and answers provided to the satisfaction of the patient/family/POA. Time-Out: A pre-procedural Time-Out was completed immediately before starting the procedure and confirmed: Patient Identification, Site, Procedure, Patient Position and the Availability of Requisite Equipment. Clinical Indications: Acute post-operative pain management requested by the operative surgeon. Nerve Block Insertion Note Anes-nerve block: adductor canal right Patient position: supine Skin prep: chlorhexidine Needle: 22 gauge, stimulating, insulated echogenic needle. Needle length: 80 mm Technique: ultrasound Injectate: bupivacaine 0.5% with epi 5 mcg/ml (30ml no epi) Observations: tolerated well Complications: none Procedure start time:: 1058 Procedure end time:: 1104
--- NOTE | 2022-02-22 11:33 | W.PM.PROC2 ---
Procedure Note - Detailed Date of Procedure 02/22/22 Pre-op Diagnosis severe right knee DJD with deformity Post-op Diagnosis Same Procedure Performed R TKA Surgeon Sachin Soriano MD Anesthesia General Description of Procedure THE RIGHT KNEE WAS PREPPED AND DRAPED IN THE STERILE FASHION. THERE WAS A 10 DEGREE FLEXION CONTRACTURE. A MIDLINE SKIN INCISION WAS MADE. A MEDIAL PARAPATELLAR ARTHROTOMY WAS MADE. THE PATELLA WAS EVERTED. THERE WAS TRICOMPARTMENT DJD. AN INTRAMEDULLARY LIZ WAS PLACED IN THE FEMUR. A DISTAL FEMORAL CUT WAS MADE IN 5 DEGREES OF VALGUS REMOVING APPROXIMATELY 9 MM OF BONE FROM THE DISTAL FEMUR. THE FEMUR WAS SIZED TO 72.5. A 72.5 FEMORAL CUTTING BLOCK WAS PLACED IN 3 DEGREES OF EXTERNAL ROTATION AND IN ALIGNMENT WITH JAYASHREE'S LINE AND THE TRANSEPICONDYLAR AXIS. ANTERIOR POSTERIOR AND CHAMFER CUTS WERE MADE. THE CUTS WERE EXCELLENT. NEXT AN INTRAMEDULLARY CUTTING GUIDE WAS PLACED IN THE TIBIA. A TRANS TIBIAL CUT WAS MADE ALONG THE LONG AXIS OF THE TIBIA. APPROXIMATELY 10 MM OF BONE WAS REMOVED FROM THE HIGH SIDE OF THE TIBIA. THE TIBIA WAS THEN PLANED TO A SMOOTH SURFACE. POSTERIOR FEMORAL OSTEOPHYTES WERE REMOVED FROM THE FEMORAL CONDYLES. A 87 TIBIAL TRIAL WAS PLACED IN ALIGNMENT WITH THE 1/3 MEDIAL ASPECT OF THE TIBIAL TUBERCLE. THEN A 72.5 FEMORAL PS CUTTING BLOCK WAS PLACED. THE BOX CUT MAS MADE. NEXT THE 72.5 PS FEMORAL TRIAL WAS PLACED. THE 87 TIBIAL TRIAL WITH A LONG STEM WAS THEN PLACED. BOTH HAD EXCELLENT FITS. EVENTUALLY A 14 MM PS+ POLY TRIAL WAS PLACED. THE KNEE WAS TAKEN THROUGH A RANGE OF MOTION. THE KNEE CAME OUT TO FULL EXTENSION. THERE WAS NO ABNORMAL TILT TO THE PATELLA. THERE WAS GOOD A/P AND VARUS/VALGUS STABILITY. THERE WAS NO EXCESSIVE ROLL BACK WITH FLEXION. THE TRIAL COMPONENTS WERE REMOVED. THEN A 72.5 FEMORAL PS COMPONENT AND 87 LONG TIBIAL COMPONENT WITH A 14 PS+ POLYETHYLENE COMPONENT WERE CEMENTED INTO PLACE. ONCE THE CEMENT WAS HARD THE KNEE WAS TAKEN THROUGH A ROM AGAIN AND FOUND TO BE STABLE WITH NO PATELLA TILT NO EXCESSIVE ROLL BACK WITH FLEXION AND GOOD STABILITY WITH COMPLETE AND FULL EXTENSION. THE KNEE WAS IRRIGATED WITH STERILE BETADINE AND WATER FOR ABOUT 3 MINUTES. THE BLEEDERS WERE CAUTERIZED. THE ARTHROTOMY WAS REPAIRED WITH NUMBER 1 VICRYL. THE SUB CUTANEOUS LAYER WITH 2-0 VICRYL AND THE SKIN WITH JILL. THE WOUND WAS WASHED AND A STERILE DRESSING WAS APPLIED. PATIENT WAS EXTUBATED. Estimated Blood Loss -400.0 Pathology None sent Complications No immediate complications Condition Stable Disposition PACU
--- NOTE | 2022-02-22 12:05 | ADMGEN ---
This patient, Mike Montana, was admitted to 2 Medical Room 260-. Patient/family oriented to hospital policies and general routines including ID bracelet, bed and alarms, visiting hours, pain management, procedures, bathroom and other care routines, personal items, smoking policy, room service/diet, and visiting hours. Information on how to activate the Rapid Response Team has been discussed. Patient/Family are encouraged to report perceived risks to care and to ask questions if they do not understand what they are told or what they should do.
[2022-02-22] MEDS: SODIUM CHLORIDE 0.9% IV 1,000 ML 125 ML IV CONT (12:34)
[2022-02-22] MEDS: SENNA/DOCUSATE SODIUM TABLET 2 TAB PO (16:48)
[2022-02-22] MEDS: OPTI-GEN TAB 1 TABLET PO (16:48)
[2022-02-22] MEDS: CELECOXIB 200 MG CAPSULE PO (16:48)
[2022-02-22] MEDS: PHENobarbital (*CRX) 60 MG TABLET PO (17:00)
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
[2022-02-22] MEDS: TAMSULOSIN HCL 0.4 MG CAPSULE PO (21:24)
[2022-02-22] MEDS: lisinopriL 10 MG TABLET PO (21:24)
[2022-02-22] MEDS: PHENYTOIN SODIUM 100 MG EXTENDED RELEASE CAP PO (21:24)
[2022-02-22] MEDS: oxyCODONE/ACETAMINOPHEN (*CRX) 5-325 MG TABLET 1 TABLET PO (21:42)
[2022-02-23] VITALS (7 sets, daily range): BP systolic 105–127; BP diastolic 52–72; PULSE 69–82; RESP 16–20; TEMP 36.3–37.1; O2SAT 96–98
--- NOTE | ~2022-02-23 | XR_ITS ---
EXAMINATION: XR knee RT 2V DATE: 02/22/2022 10:55 INDICATION: Postoperative evaluation following right total knee arthroplasty. TECHNIQUE: Anteroposterior and lateral views of the right knee were obtained. COMPARISON: None. FINDINGS: Right total knee arthroplasty without patellar resurfacing appears well seated and in near anatomic a lignment. No acute fractures identified. Underlying chronic fracture deformity at the posterior meta physeal region of the right tibia. Skin gil and expected postoperative subcutaneous and intra-art icular gas. IMPRESSION: 1. Right total knee arthroplasty, negative for postoperative purposes. Reviewed, dictated and finalized at location A.
[2022-02-23 06:18] LABS: Basophils Percent Auto 0.3 % (0.2-1.2); Eosinophils Percent Auto 0.3 % (0-4.4); Hematocrit 29.8 % (42.0-52.0); Hemoglobin 9.8 g/dL (14.0-18.0); Immature Granulocyte Absolute 0.01 K/mm3 (0.00-0.031); Immature Granulocyte Percent A 0.2 % (0-0.5); Lymphocytes Absolute Auto 1.21 K/mm3 (0.9-3.2); Lymphocytes Percent Auto 20.1 % (18.3-44.2); Mean Corpuscular HGB Conc 32.9 g/dl (32-36); Mean Corpuscular Hemoglobin 30.2 pg (26-34); Mean Corpuscular Volume 91.7 fl (80-100); Mean Platelet Volume 10.5 fl (7.4-10.4); Monocytes Absolute Auto 0.6 K/mm3 (0.1-0.6); Monocytes Percent Auto 10.5 % (2.6-8.5); Neutrophils Absolute Auto 4.1 K/mm3 (1.3-6.7); Neutrophils Percent Auto 68.6 % (45.5-73.1); Platelet Count Result 122 k/mm3 (150-375); Red Blood Count 3.25 M/mm3 (4.6-6.20); Red Cell Distribution Width 14.8 % (11.5-14.5)
[2022-02-23] MEDS: ALENDRONATE SODIUM 70 MG TABLET PO (06:23)
[2022-02-23 06:25] LABS: Anion Gap 3 mmol/L (8-16); Blood Urea Nitrogen 18 mg/dL (9-20); Calcium 7.5 mg/dL (8.4-10.2); Carbon Dioxide 26 mmol/L (22-30); Chloride 106 mmol/L (98-107); Estimated CRCL calculation 74 ml/min; Estimated Glomerular Filt Rate > 60; Glucose 107 mg/dL (65-110); Sodium 135 mmol/L (137-145)
[2022-02-23] MEDS: ASPIRIN 325 MG ENTERIC TABLET 650 MG PO (08:43)
[2022-02-23] MEDS: CELECOXIB 200 MG CAPSULE PO ×2 (08:43→17:07)
[2022-02-23] MEDS: CHOLECALCIFEROL 1,000 UNITS TABLET 2000 UNITS PO (08:43)
[2022-02-23] MEDS: PHENYTOIN SODIUM 100 MG EXTENDED RELEASE CAP PO ×2 (08:43→21:06)
[2022-02-23] MEDS: SENNA/DOCUSATE SODIUM TABLET 2 TAB PO ×2 (08:43→17:07)
[2022-02-23] MEDS: PHENobarbital (*CRX) 60 MG TABLET PO ×2 (08:43→17:06)
[2022-02-23] MEDS: polyethylene glycoL 3350 17 GM POWD.PACK PO (08:43)
[2022-02-23] MEDS: OPTI-GEN TAB 1 TABLET PO ×2 (08:43→17:07)
[2022-02-23] MEDS: ceFAZolin 2 GM/D5W 50 ML 2 GM/50 ML BAG IVPB (08:44)
--- NOTE | 2022-02-23 10:42 | WPDANESPN ---
Anes - Prog Note Post-Op Date/Time: 02/23/22 10:42 Cardiovascular status: normal Respiratory status: normal Airway patency: baseline Mental status: baseline Post-Op hydration status: normal Vital Signs: Last Vital Signs Temp 98.7 F 02/23/22 10:25 Pulse 76 02/23/22 10:25 Resp 18 02/23/22 10:25 BP 105/52 L 02/23/22 10:25 Pulse Ox 97 02/23/22 10:25 Pain Score (VAS): 12/05 I/O: Intake & Output 02/22/22 02/23/22 02/23/22 23:59 07:59 15:59 Intake Total 1440 600 290 Output Total 925 450 Balance 515 150 290 Laboratory Tests 02/23/22 05:46 02/23/22 05:46 02/23/22 02/23/22 05:46 05:46 WBC 6.0 RBC 3.25 L Hgb 9.8 L D Hct 29.8 L MCV 91.7 MCH 30.2 MCHC 32.9 RDW 14.8 H Plt Count 122 L MPV 10.5 H Immature Gran % (Auto) 0.2 Neut % (Auto) 68.6 Lymph % (Auto) 20.1 [place] % (Auto) 10.5 H Eos % (Auto) 0.3 Baso % (Auto) 0.3 Lymph # (Auto) 1.21 [place] # (Auto) 0.6 Eos # (Auto) 0.0 Baso # (Auto) 0.0 Abs Immat Gran (auto) 0.01 Absolute Neuts (auto) 4.1 Absolute Nucleated RBC 0.0 Nucleated RBC % 0.0 Sodium 135 L Potassium 4.0 Chloride 106 Carbon Dioxide 26 Anion Gap 3 L BUN 18 Creatinine 0.80 Estim Creat Clear Calc 74 Estimated GFR > 60 Glucose 107 Calcium 7.5 L Post-procedural complaints: none Patient Feedback: Patient satisfied with anesthetic care.
--- NOTE | 2022-02-23 13:51 | PCWOUND ---
WOCN NOTE Received call to assess disposable wound vac beeping. reset wound vac, no alarms or leaking present at this time. Received report RN did secure edges of dressing.
--- NOTE | 2022-02-23 15:39 | PM.IMPN ---
Progress Note: A&P Assessment and Plan (1) Degenerative joint disease of knee: Qualifiers: Osteoarthritis type: post-traumatic Laterality: right Qualified Code(s): M17.31 - Unilateral post-traumatic osteoarthritis, right knee Code(s): M17.10 - Unilateral primary osteoarthritis, unspecified knee Status: Acute Assessment and Plan: POD#1 s/p R. Total Knee Arthroplasty -Management per Orthopedic Surgery -Would recommend PPI for patient if he will be discharged with celecoxib. The PPI can be discontinued when the celecoxib is discontinued. . (2) Seizures: Code(s): R56.9 - Unspecified convulsions Status: Acute Assessment and Plan: Continue phenytoin and phenobarbital. (3) Essential (primary) hypertension: Code(s): I10 - Essential (primary) hypertension Status: Acute Assessment and Plan: BP well controlled. -Continue lisinopril 10 mg po hs Subjective Date/time seen: Date of Service 02/23/22 0845 Says PT has not seen him this morning. Says his pain is about 2-3/10. Review of Systems Musculoskeletal: Musculoskeletal: Reports arthralgias Exam Narrative: GENERAL: NAD, cooperative HEENT: Normocephalic, atraumatic, anicteric NECK: Supple CV: Normal S1, S2, RRR, No MRG RESP: CTAB, Normal work of breathing. EXTREMITIES: r. knee with catheter infusion and island teagaderem over dressing SKIN: warm, dry and intact. NEURO: CN 2-12 grossly intact. Objective Data Vital Signs Vital Signs: Vital Signs - 24 hr 02/22/22 18:58 02/22/22 19:53 02/22/22 21:25 Temperature 97.4 F L 98.7 F Pulse Rate 78 78 Respiratory Rate 16 14 Blood Pressure 127/64 121/64 Pulse Oximetry 98 95 99 02/23/22 01:19 02/23/22 06:00 02/23/22 10:25 Temperature 97.6 F 98.5 F 98.7 F Pulse Rate 72 69 76 Respiratory Rate 16 16 18 Blood Pressure 108/58 L 114/67 105/52 L Pulse Oximetry 98 96 97 02/23/22 14:00 Temperature 98.1 F Pulse Rate 82 Respiratory Rate 18 Blood Pressure 114/58 L Pulse Oximetry 97 Intake/Output Intake/Output: Intake & Output 03/2802/21/22 02/22/22 02/23/22 23:59 23:59 23:59 23:59 Intake Total 3290 1130 Output Total 925 518 Balance 2366 680 Meds/Results Medications: Active Medications Generic Name Dose Route Start Last Admin Trade Name Chung PRN Reason Stop Dose Admin Acetaminophen 1,000 mg 02/22/22 11:49 Acetaminophen 500 Mg Tablet PO Q6H PRN Pain Rated 1-3 Alendronate Sodium 70 mg 02/23/22 06:30 02/23/22 06:23 Alendronate Sodium 70 Mg Tablet PO 70 mg Th@0630 JOSEPH Administration Aspirin 650 mg 02/23/22 09:00 02/23/22 08:43 Aspirin 325 Mg Enteric Tablet PO 650 mg DAILY JOSEPH Administration Celecoxib 200 mg 02/22/22 17:00 02/23/22 08:43 Celecoxib 200 Mg Capsule PO 200 mg BIDWM JOSEPH Administration Diazepam 5 mg 02/22/22 11:49 Diazepam (*Crx) 5 Mg Tablet PO Q8H PRN Spasms Diphenhydramine HCl 25 mg 02/22/22 11:49 Diphenhydramine Hcl Inj 50 Mg/Ml Vial IV PUSH Q6H PRN Itching Lisinopril 10 mg 02/22/22 21:00 02/22/22 21:24 Lisinopril 10 Mg Tablet PO 10 mg HS JOSEPH Administration Multivitamins/Minerals 1 tablet 02/22/22 17:00 02/23/22 08:43 Opti-Gen Tab PO 1 tablet BID JOSEPH Administration Naloxone HCl 0.1 mg 02/22/22 11:49 Naloxone Hcl 0.4 Mg/Ml Vial IV PUSH Q2M PRN Opiate Reversal Ondansetron HCl 4 mg 02/22/22 11:49 Ondansetron Inj 4 Mg/2 Ml Vial IV PUSH Q4H PRN Nausea And Vomiting Oxycodone/Acetaminophen 1 tablet 02/22/22 11:49 02/22/22 21:42 Oxycodone/Acetaminophen (*Crx) 5-325 Mg Tablet PO 1 tablet Q4H PRN Administration Pain Rated 4-6 Oxycodone/Acetaminophen 2 tablet 02/22/22 11:49 Oxycodone/Acetaminophen (*Crx) 5-325 Mg Tablet PO Q6H PRN Pain Rated 7-10 Phenobarbital 60 mg
--- NOTE | 2022-02-23 18:18 | PM.PNORT ---
Progress Note: A&P Additional Plan POD 1 DOING WELL. WILL CONTINUE PT. DRESSING CHANGE TMRW. DC TMRW MOST LIKELY Subjective Subjective Date/Time Seen: 02/23/22 18:18 POD 1 DOING WELL. SLOW PROGRESS WITH PT. NO CALF PAIN Exam Extrem: Other: VSS AFEBRILE DRESSING WITH MILD DRAINAGE NV INTACT NEG HOMANS SIGN CALF SOFT NON TENDER Objective Data Vital Signs Vital Signs: Vital Signs - 24 hr 02/22/22 18:58 02/22/22 19:53 02/22/22 21:25 Temperature 36.3 C L 37.1 C Pulse Rate 78 78 Respiratory Rate 16 14 Blood Pressure 127/64 121/64 Pulse Oximetry 98 95 99 02/23/22 01:19 02/23/22 06:00 02/23/22 10:25 Temperature 36.4 C 36.9 C 37.1 C Pulse Rate 72 69 76 Respiratory Rate 16 16 18 Blood Pressure 108/58 L 114/67 105/52 L Pulse Oximetry 98 96 97 02/23/22 14:00 Temperature 36.7 C Pulse Rate 82 Respiratory Rate 18 Blood Pressure 114/58 L Pulse Oximetry 97 Intake/Output Intake/Output: Intake & Output 02/20/22 02/21/22 02/22/22 02/23/22 23:59 23:59 23:59 23:59 Intake Total 3290 1370 Output Total 925 450 Balance 2365 920 Meds/Results Medications: Active Medications Generic Name Dose Route Start Last Admin Trade Name Freq PRN Reason Stop Dose Admin Acetaminophen 1,000 mg 02/22/22 11:49 Acetaminophen 500 Mg Tablet PO Q6H PRN Pain Rated 1-3 Alendronate Sodium 70 mg 02/23/22 06:30 02/23/22 06:23 Alendronate Sodium 70 Mg Tablet PO 70 mg Th@0630 JOSEPH Administration Aspirin 650 mg 02/23/22 09:00 02/23/22 08:43 Aspirin 325 Mg Enteric Tablet PO 650 mg DAILY JOSEPH Administration Celecoxib 200 mg 02/22/22 17:00 02/23/22 17:07 Celecoxib 200 Mg Capsule PO 200 mg BIDWM JOSEPH Administration Diazepam 5 mg 02/22/22 11:49 Diazepam (*Crx) 5 Mg Tablet PO Q8H PRN Spasms Diphenhydramine HCl 25 mg 02/22/22 11:49 Diphenhydramine Hcl Inj 50 Mg/Ml Vial IV PUSH Q6H PRN Itching Lisinopril 10 mg 02/22/22 21:00 02/22/22 21:24 Lisinopril 10 Mg Tablet PO 10 mg HS [facility] Administration Multivitamins/Minerals 1 tablet 02/22/22 17:00 02/23/22 17:07 Opti-Gen Tab PO 1 tablet BID JOSEPH Administration Naloxone HCl 0.1 mg 02/22/22 11:49 Naloxone Hcl 0.4 Mg/Ml Vial IV PUSH Q2M PRN Opiate Reversal Ondansetron HCl 4 mg 02/22/22 11:49 Ondansetron Inj 4 Mg/2 Ml Vial IV PUSH Q4H PRN Nausea And Vomiting Oxycodone/Acetaminophen 1 tablet 02/22/22 11:49 02/22/22 21:42 Oxycodone/Acetaminophen (*Crx) 5-325 Mg Tablet PO 1 tablet Q4H PRN Administration Pain Rated 4-6 Oxycodone/Acetaminophen 2 tablet 02/22/22 11:49 Oxycodone/Acetaminophen (*Crx) 5-325 Mg Tablet PO Q6H PRN Pain Rated 7-10 Phenobarbital 60 mg 02/22/22 17:00 02/23/22 17:06 Phenobarbital (*Crx) 60 Mg Tablet PO 60 mg BID [facility] Administration Phenytoin Sodium 100 mg 02/22/22 21:00 02/23/22 08:43 Phenytoin Sodium 100 Mg Extended Release Cap PO 100 mg Q12HR JOSEPH Administration Phenytoin Sodium 100 mg 02/24/22 09:00 Phenytoin Sodium 100 Mg Extended Release Cap PO Q48H [facility] Polyethylene Glycol 17 gm 02/23/22 09:00 02/23/22 08:43 Polyethylene Glycol 3350 17 Gm Powd.Pack PO 17 gm QAM [facility] Administration Senna/Docusate Sodium 2 tab 02/22/22 17:00 02/23/22 17:07 Senna/Docusate Sodium Tablet PO 2 tab BID [facility] Administration Tamsulosin HCl 0.4 mg 02/22/22 21:00 02/22/22 21:24 Tamsulosin Hcl 0.4 Mg Capsule PO 0.4 mg HS [facility] Administration Vitamin D 2,000 units 02/23/22 09:00 02/23/22 08:43 Cholecalciferol 1,000 Units Tablet PO 2,000 units DAILY JOSEPH Administration Radiology Results: ITS Impressions Knee X-Ray 02/22/22 11:17 IMPRESSION: 1. Right total knee arthroplasty, negative for postoperative purposes. Labs Labs: Laboratory Results - last 24 hr 02/23/22 02/23/22 05:46 05:46 WBC 6.0 RBC 3.25 L Hgb 9.8 L D Hct
[2022-02-23] MEDS: lisinopriL 10 MG TABLET PO (21:06)
[2022-02-23] MEDS: TAMSULOSIN HCL 0.4 MG CAPSULE PO (21:06)
[2022-02-24 00:38] VITALS: BP 119/69; PULSE 76; RESP 18; TEMP 36; O2SAT 95
[2022-02-24 05:25] VITALS: BP 115/62; PULSE 96; RESP 20; TEMP 35.8; O2SAT 73
--- NOTE | 2022-02-24 07:52 | PM.IMPN ---
Progress Note: A&P Assessment and Plan (1) Degenerative joint disease of knee: Qualifiers: Osteoarthritis type: post-traumatic Laterality: right Qualified Code(s): M17.31 - Unilateral post-traumatic osteoarthritis, right knee Code(s): M17.10 - Unilateral primary osteoarthritis, unspecified knee Status: Acute Assessment and Plan: POD#2 s/p R. Total Knee Arthroplasty -Management per Orthopedic Surgery -Would recommend PPI for patient if he will be discharged with celecoxib. The PPI can be discontinued when the celecoxib is discontinued. . (2) Seizures: Code(s): R56.9 - Unspecified convulsions Status: Acute Assessment and Plan: Continue phenytoin and phenobarbital. (3) Essential (primary) hypertension: Code(s): I10 - Essential (primary) hypertension Status: Acute Assessment and Plan: BP well controlled. -Continue lisinopril 10 mg po hs Subjective Date/time seen: Date of service 02/24/22 07:52 Patient says he is doing fine. Has some knee swelling. Says his most pain is when moving from sitting to standing. Review of Systems Musculoskeletal: Musculoskeletal: Reports arthralgias and Reports joint swelling Exam Narrative: GENERAL: NAD, cooperative HEENT: Normocephalic, atraumatic, anicteric NECK: Supple CV: Normal S1, S2, RRR, No MRG RESP: CTAB, Normal work of breathing. EXTREMITIES: r. knee with catheter infusion and island teagaderem over dressing SKIN: warm, dry and intact. NEURO: CN 2-12 grossly intact. Objective Data Vital Signs Vital Signs: Vital Signs - 24 hr 02/23/22 10:25 02/23/22 14:00 02/23/22 18:00 Temperature 98.7 F 98.1 F 97.3 F L Pulse Rate 76 82 78 Respiratory Rate 18 18 16 Blood Pressure 105/52 L 114/58 L 127/72 Pulse Oximetry 97 97 98 02/23/22 20:00 02/23/22 21:24 02/24/22 00:38 Temperature 98.6 F 96.8 F L Pulse Rate 77 76 Respiratory Rate 20 18 Blood Pressure 120/66 119/69 Pulse Oximetry 97 97 95 02/24/22 05:25 Temperature 96.5 F L Pulse Rate 96 Respiratory Rate 20 Blood Pressure 115/62 Pulse Oximetry 73 L Intake/Output Intake/Output: Intake & Output 02/21/22 02/22/22 02/23/22 02/24/22 23:59 23:59 23:59 23:59 Intake Total 3290 1670 390 Output Total 527 284 5288 Balance 0770 979 -4836 Meds/Results Medications: Active Medications Generic Name Dose Route Start Last Admin Trade Name Freq PRN Reason Stop Dose Admin Acetaminophen 1,000 mg 02/22/22 11:49 Acetaminophen 500 Mg Tablet PO Q6H PRN Pain Rated 1-3 Alendronate Sodium 70 mg 02/23/22 06:30 02/23/22 06:23 Alendronate Sodium 70 Mg Tablet PO 70 mg Th@0630 JOSEPH Administration Aspirin 650 mg 02/23/22 09:00 02/23/22 08:43 Aspirin 325 Mg Enteric Tablet PO 650 mg DAILY JOSEPH Administration Celecoxib 200 mg 02/22/22 17:00 02/23/22 17:07 Celecoxib 200 Mg Capsule PO 200 mg BIDWM JOSEPH Administration Diazepam 5 mg 02/22/22 11:49 Diazepam (*Crx) 5 Mg Tablet PO Q8H PRN Spasms Diphenhydramine HCl 25 mg 02/22/22 11:49 Diphenhydramine Hcl Inj 50 Mg/Ml Vial IV PUSH Q6H PRN Itching Lisinopril 10 mg 02/22/22 21:00 02/23/22 21:06 Lisinopril 10 Mg Tablet PO 10 mg HS JOSEPH Administration Multivitamins/Minerals 1 tablet 02/22/22 17:00 02/23/22 17:07 Opti-Gen Tab PO 1 tablet BID JOSEPH Administration Naloxone HCl 0.1 mg 02/22/22 11:49 Naloxone Hcl 0.4 Mg/Ml Vial IV PUSH Q2M PRN Opiate Reversal Ondansetron HCl 4 mg 02/22/22 11:49 Ondansetron Inj 4 Mg/2 Ml Vial IV PUSH Q4H PRN Nausea And Vomiting Oxycodone/Acetaminophen 1 tablet 02/22/22 11:49 02/22/22 21:42 Oxycodone/Acetaminophen (*Crx) 5-325 Mg Tablet PO 1 tablet Q4H PRN Administration Pain Rated 4-6 Oxycodone/Acetaminophen 2 tablet 02/22/22 11:49 Oxycodone/Acetaminophe
[2022-02-24] MEDS: polyethylene glycoL 3350 17 GM POWD.PACK PO (09:05)
[2022-02-24] MEDS: ASPIRIN 325 MG ENTERIC TABLET 650 MG PO (09:05)
[2022-02-24] MEDS: PHENobarbital (*CRX) 60 MG TABLET PO (09:05)
[2022-02-24] MEDS: SENNA/DOCUSATE SODIUM TABLET 2 TAB PO (09:06)
[2022-02-24] MEDS: CELECOXIB 200 MG CAPSULE PO (09:06)
[2022-02-24] MEDS: OPTI-GEN TAB 1 TABLET PO (09:06)
[2022-02-24] MEDS: CHOLECALCIFEROL 1,000 UNITS TABLET 2000 UNITS PO (09:06)
[2022-02-24] MEDS: PHENYTOIN SODIUM 100 MG EXTENDED RELEASE CAP PO ×2 (09:06→09:07)
[2022-02-24 10:45] VITALS: BP 125/72; PULSE 82; RESP 16; TEMP 36.9; O2SAT 98
--- NOTE | 2022-02-24 13:13 | PM.PNORT ---
Progress Note: A&P Additional Plan POD 2 DOING WELL. OK TO DC HOME. KEEP ANNIE DRESSING ON FOR I WEEK THEN SWITCH TO MEPELX. F/U IN 3 WEEKS. Time Spent With Patient Time with patient: 15 - 25 minutes Subjective Subjective Date/Time Seen: 02/24/22 13:13 POD 2 DOING WELL. IMPROVED WITH PT. NO CALF PAIN Exam Extrem: Other: VSS AFEBRILE DRESSING DRY, NV INTACT WOUND CLEAN, DRESSING REAPPLIED, NO CALF TENDERNESS Objective Data Vital Signs Vital Signs: Vital Signs - 24 hr 02/23/22 14:00 02/23/22 18:00 02/23/22 20:00 Temperature 36.7 C 36.3 C L Pulse Rate 82 78 Respiratory Rate 18 16 Blood Pressure 114/58 L 127/72 Pulse Oximetry 97 98 97 02/23/22 21:24 02/24/22 00:38 02/24/22 05:25 Temperature 37.0 C 36.0 C L 35.8 C L Pulse Rate 77 76 96 Respiratory Rate 20 18 20 Blood Pressure 120/66 119/69 115/62 Pulse Oximetry 97 95 73 L 02/24/22 10:45 Temperature 36.9 C Pulse Rate 82 Respiratory Rate 16 Blood Pressure 125/72 Pulse Oximetry 98 Intake/Output Intake/Output: Intake & Output 02/21/22 02/22/22 02/23/22 02/24/22 23:59 23:59 23:59 23:59 Intake Total 3290 1670 750 Output Total 782 441 2954 Balance 2365 795 -850 Meds/Results Medications: Active Medications Generic Name Dose Route Start Last Admin Trade Name Freq PRN Reason Stop Dose Admin Acetaminophen 1,000 mg 02/22/22 11:49 Acetaminophen 500 Mg Tablet PO Q6H PRN Pain Rated 1-3 Alendronate Sodium 70 mg 02/23/22 06:30 02/23/22 06:23 Alendronate Sodium 70 Mg Tablet PO 70 mg Th@0630 JOSEPH Administration Aspirin 650 mg 02/23/22 09:00 02/24/22 09:05 Aspirin 325 Mg Enteric Tablet PO 650 mg DAILY JOSEPH Administration Celecoxib 200 mg 02/22/22 17:00 02/24/22 09:06 Celecoxib 200 Mg Capsule PO 200 mg BIDWM JOSEPH Administration Diazepam 5 mg 02/22/22 11:49 Diazepam (*Crx) 5 Mg Tablet PO Q8H PRN Spasms Diphenhydramine HCl 25 mg 02/22/22 11:49 Diphenhydramine Hcl Inj 50 Mg/Ml Vial IV PUSH Q6H PRN Itching Lisinopril 10 mg 02/22/22 21:00 02/23/22 21:06 Lisinopril 10 Mg Tablet PO 10 mg HS JOSEPH Administration Multivitamins/Minerals 1 tablet 02/22/22 17:00 02/24/22 09:06 Opti-Gen Tab PO 1 tablet BID JOSEPH Administration Naloxone HCl 0.1 mg 02/22/22 11:49 Naloxone Hcl 0.4 Mg/Ml Vial IV PUSH Q2M PRN Opiate Reversal Ondansetron HCl 4 mg 02/22/22 11:49 Ondansetron Inj 4 Mg/2 Ml Vial IV PUSH Q4H PRN Nausea And Vomiting Oxycodone/Acetaminophen 1 tablet 02/22/22 11:49 02/22/22 21:42 Oxycodone/Acetaminophen (*Crx) 5-325 Mg Tablet PO 1 tablet Q4H PRN Administration Pain Rated 4-6 Oxycodone/Acetaminophen 2 tablet 02/22/22 11:49 Oxycodone/Acetaminophen (*Crx) 5-325 Mg Tablet PO Q6H PRN Pain Rated 7-10 Phenobarbital 60 mg 02/22/22 17:00 02/24/22 09:05 Phenobarbital (*Crx) 60 Mg Tablet PO 60 mg BID JOSEPH Administration Phenytoin Sodium 100 mg 02/22/22 21:00 02/24/22 09:06 Phenytoin Sodium 100 Mg Extended Release Cap PO 100 mg Q12HR JOSEPH Administration Phenytoin Sodium 100 mg 02/24/22 09:00 02/24/22 09:07 Phenytoin Sodium 100 Mg Extended Release Cap PO 100 mg Q48H JOSEPH Administration Polyethylene Glycol 17 gm 02/23/22 09:00 02/24/22 09:05 Polyethylene Glycol 3350 17 Gm Powd.Pack PO 17 gm QAM JOSEPH Administration Senna/Docusate Sodium 2 tab 02/22/22 17:00 02/24/22 09:06 Senna/Docusate Sodium Tablet PO 2 tab BID JOSEPH Administration Tamsulosin HCl 0.4 mg 02/22/22 21:00 02/23/22 21:06 Tamsulosin Hcl 0.4 Mg Capsule PO 0.4 mg HS JOSEPH Administration Vitamin D 2,000 units 02/23/22 09:00 02/24/22 09:06 Cholecalciferol 1,000 Units Tablet PO 2,000 units DAILY JOSEPH Administration Radiology Results: ITS Impressions Knee X-Ray 02/22/22 11:17 IMPRESSION: 1. Right total knee arthroplasty, negative for postoperative purposes.
--- NOTE | 2022-02-24 13:15 | PM.DS ---
DS: Admitting Diagnosis Discharge Date 02/24/22 Admitting Diagnosis RIGHT KNEE DJD DS: Discharge Diagnosis Discharge Diagnosis (1) Right knee DJD: Code(s): M17.11 - Unilateral primary osteoarthritis, right knee Status: Acute DS: Summary Hospital Course Reason for hospitalization: R TKA Hospital Course: PATIENT WAS ADMITTED S/P R TOTAL KNEE ARTHROPLASTY FOR POSTOPERATIVE MEDICAL MANAGEMENT, PAIN CONTROL AND MOBILIZATION WITH PHYSICAL AND OCCUPATIONAL THERAPY. THE PATIENT PROGRESSED WELL WITH PT/OT. LABS AND VITALS REMAINED STABLE AND PAIN WELL CONTROLLED. THE PATIENT HAS BEEN CLEARED TO BE DISCHARGED HOME. FOLLOW UP APPOINTMENT SCHEDULED. DISCHARGE INSTRUCTIONS DISCUSSED AT LENGTH WITH THE PATIENT. MEDICATIONS REVIEWED. Time spent discussing smoking cessation with patient: more than 10 minutes Status at Discharge Cognitive/behavioral status at discharge: STABLE Functional status at discharge: uses cane/walker Overall status at discharge: patient is not back to baseline Time Spent with Patient Time attestation: Total time spent providing and/or coordinating discharge services: Time spent: Less than 30 minutes Discharge Plan Discharge Attending physician on discharge: Sachin Soriano Consulting providers: Cristian Quesada Discharging Clinician: Sachin Soriano Anticipated Discharge Date/Time: 02/24/22 13:18 Patient Disposition: Home Health Service Activity: may shower, no driving and follow weight bearing status Diet: as tolerated Wound Care Instructions: keep dressing dry and other - see discharge instructions Discharge Instructions: Per Care Coordination, pt. will discharge home with [facility] for continued PT/OT. [facility] will contact pt. at time of discharge. SACHIN SORIANO M.D. [facility] [address] [place] [address] [address] [place] [id number] POST OPERATIVE DISCHARGE INSTRUCTIONS FOLLOWING TOTAL KNEE REPLACEMENT SURGERY ? Your dressing will be changed prior to your discharge. You will be sent home with one additional dressing to be changed on post op day 7 by the home health RN. Your gil will be removed on the 14th day after surgery and steri-strips will be placed. Please practice good hand hygiene and do not touch your incision in order to prevent infection. ? You may shower with your dressing but do not submerge in a bath tub. ? Do not drive or operate machinery until you are released by Dr. Soriano. ? Do not walk without a walker for any reason until you are released by Dr. Soriano. ? Continue to use your ice machine. Please use a towel or pillow case to protect your skin before applying your ice machine. ? Do NOT place a pillow under your knee. You may use a pillow from the calf down if needed. This will prevent a flexion contracture postoperatively. ? You may begin use of your CPM machine at home if you have been given one pre-operatively. DO NOT USE WHILE YOU ARE SLEEPING. ? Your first post op appointment was sent to you via mail preoperatively. If you have any questions or are unable to make your appointment, please contact our office for scheduling questions. ? Your medications have been sent to your pharmacy. You have been sent home with pain medication. We have also sent you with a stool softener as narcotics can cause constipation. Please keep this in mind during your postoperative recovery. If you are not experiencing regular bowel movements, please contact our office for further instruction. ? Please contact our office with any questions/concerns regarding your knee at [phone]. Patient Instructions: Antibiotic Form Stand Alone Forms: General Discharge Information Follow-up/Referrals: Sachin Soriano MD [Physician] - 3 Weeks Discharge Medications: New oxycodone-acetaminophen [Percocet] 5-325 mg tablet 1 tablet PO Q6H PRN (Reason: pain) Qty: 50 RF: 0 a
[2022-02-24 14:20] VITALS: BP 106/63; PULSE 77; RESP 16; TEMP 36.4; O2SAT 98
== END 2022-02-24 15:46 | disposition home health service (06) ==
LOC: ANHSURGERY 18:34 → ANH2MED 18:34
PROVIDERS: Admitting Provider Orthopaedic Surgery; PCP Family Medicine; Visit Provider Orthopaedic Surgery
PROC: (CPT 27447; principal; 2022-02-22 07:30)
DX: M17.11 Unilateral primary osteoarthritis, right knee (principal); G89.18 Other acute postprocedural pain; I10 Essential (primary) hypertension; N40.0 Benign prostatic hyperplasia without lower urinary tract symptoms; R01.1 Cardiac murmur, unspecified; R56.9 Unspecified convulsions; Z85.72 Personal history of non-Hodgkin lymphomas
CPT/HCPCS: 27447; 64447; 36415; 73560; 80048; 80185; 80307; 81001; 82040; 83036; 85025; 85610; 85730; 86850; 86900; 86901; 87081; 93005; 97110; 97116; 97161; 97165; 97530; 97535; A9270; C1713; C1776; G0378; J0171; J0690; J1100; J1170; J1885; J2250; J2270; J2370; J2405; J2704; J2795; J3010; J7030; J7120

== ENCOUNTER 2023-02-08 15:49 | Emergency (ER) | payer MEDICARE, SELFPAY ==
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
[2023-02-08 15:57] VITALS: BP 145/70; PULSE 77; RESP 16; TEMP 36.2; O2SAT 98
== END 2023-02-08 16:18 | disposition home or self-care (01) ==
PROVIDERS: Emergency Provider Nurse Practitioner; PCP Family Medicine
DX: R22.43 Localized swelling, mass and lump, lower limb, bilateral (principal); M17.11 Unilateral primary osteoarthritis, right knee; N40.0 Benign prostatic hyperplasia without lower urinary tract symptoms; I10 Essential (primary) hypertension; R01.1 Cardiac murmur, unspecified; M81.0 Age-related osteoporosis without current pathological fracture; G40.909 Epilepsy, unspecified, not intractable, without status epilepticus; Z96.651 Presence of right artificial knee joint; Z85.72 Personal history of non-Hodgkin lymphomas
CPT/HCPCS: 99211; G0463

== ENCOUNTER 2023-11-09 10:50 | Outpatient (CLI) | payer MEDICARE, SELFPAY ==
[2023-11-09 11:04] LABS: Basophils Percent Auto 0.9 % (0.2-1.2); Eosinophils Absolute Auto 0.4 K/mm3 (0-0.3); Eosinophils Percent Auto 8.1 % (0-4.4); Hematocrit 40.5 % (42.0-52.0); Hemoglobin 13.6 g/dL (14.0-18.0); Immature Granulocyte Absolute 0.01 K/mm3 (0.00-0.031); Immature Granulocyte Percent A 0.2 % (0-0.5); Lymphocytes Absolute Auto 1.32 K/mm3 (0.9-3.2); Lymphocytes Percent Auto 29.7 % (18.3-44.2); Mean Corpuscular HGB Conc 33.6 g/dl (32-36); Mean Corpuscular Hemoglobin 30.8 pg (26-34); Mean Corpuscular Volume 91.6 fl (80-100); Mean Platelet Volume 9.2 fl (7.4-10.4); Monocytes Absolute Auto 0.5 K/mm3 (0.1-0.6); Monocytes Percent Auto 10.8 % (2.6-8.5); Neutrophils Absolute Auto 2.2 K/mm3 (1.3-6.7); Neutrophils Percent Auto 50.3 % (45.5-73.1); Platelet Count Result 169 k/mm3 (150-375); Red Blood Count 4.42 M/mm3 (4.6-6.20); Red Cell Distribution Width 13.3 % (11.5-14.5); White Blood Count 4.5 K/mm3 (4.5-10.0)
[2023-11-09 12:20] LABS: Alanine Aminotransferase 18 U/L (6-50); Albumin Level 4.1 g/dL (3.5-5.1); Alkaline Phosphatase 90 U/L (38-126); Anion Gap 7 mmol/L (8-16); Aspartate Amino Transferase 23 U/L (17-59); Bilirubin,Total 0.4 mg/dL (0.2-1.3); Blood Urea Nitrogen 18 mg/dL (9-20); Calcium 9.2 mg/dL (8.4-10.2); Carbon Dioxide 28 mmol/L (22-30); Chloride 105 mmol/L (98-107); Estimated Glomerular Filt Rate > 60; Glucose 89 mg/dL (65-110); Lactate Dehydrogenase 182 U/L (120-246); Potassium 4.3 mmol/L (3.4-5.0); Sodium 140 mmol/L (137-145)
== END 2023-11-09 10:51 | disposition home or self-care (01) ==
LOC: ANHLAB 10:52
PROVIDERS: PCP Family Medicine; Visit Provider Internal Medicine Hematology & Oncology
DX: C85.85 Other specified types of non-Hodgkin lymphoma, lymph nodes of inguinal region and lower limb (principal)
CPT/HCPCS: 36415; 80053; 83615; 85025

== ENCOUNTER 2025-02-11 15:03 | Outpatient (CLI) | payer MEDICARE, SELFPAY ==
[2025-02-11 15:14] LABS: Basophils Absolute Auto 0.1 K/mm3 (0.0-0.1); Basophils Percent Auto 1.1 % (0.2-1.2); Eosinophils Absolute Auto 0.5 K/mm3 (0-0.3); Eosinophils Percent Auto 8.1 % (0-4.4); Hematocrit 38.9 % (42.0-52.0); Hemoglobin 13.1 g/dL (14.0-18.0); Immature Granulocyte Absolute 0.01 K/mm3 (0.00-0.031); Immature Granulocyte Percent A 0.2 % (0-0.5); Lymphocytes Absolute Auto 1.48 K/mm3 (0.9-3.2); Lymphocytes Percent Auto 26.7 % (18.3-44.2); Mean Corpuscular HGB Conc 33.7 g/dl (32-36); Mean Corpuscular Hemoglobin 30.3 pg (26-34); Mean Corpuscular Volume 89.8 fl (80-100); Mean Platelet Volume 9.5 fl (7.4-10.4); Monocytes Absolute Auto 0.6 K/mm3 (0.1-0.6); Monocytes Percent Auto 9.9 % (2.6-8.5); Platelet Count Result 172 k/mm3 (150-375); Red Blood Count 4.33 M/mm3 (4.6-6.20); White Blood Count 5.5 K/mm3 (4.5-10.0)
[2025-02-11 15:18] LABS: Blood Urea Nitrogen 15 mg/dL (8-26); Carbon Dioxide 25 mmol/L (22-30); Chloride 105 mmol/L (98-109); Estimated Glomerular Filt Rate > 60; Glucose 99 mg/dL (70-105); Ionized Calcium (POC) 1.16 mmol/L (1.11-1.31); Potassium 4.1 mmol/L (3.5-4.9); Sodium 140 mmol/L (138-146)
--- OUTSIDE RECORDS SUMMARY | 2025-02-11 16:37 | XMS_ITS | Clinical Summary ---
Author Organization [facility] Address [address] [facility], [address] [address] Phone Care Team Providers Care Ship Loader Name Role Phone Lei Ng MD Primary Care Provider Allergies Active Allergy Reactions Criticality Noted Date Comments Penicillins Unknown 09/01/2020 Medications Phenytoin (DILANTIN PO) Take 100 mg by mouth every morning. Alternating 3 tabs then 2 tabs Active PHENobarbital (LUMINAL) 64.8 MG Tablet Take by mouth 2 times daily. Active lisinopril (PRINIVIL, ZESTRIL) 10 MG Tablet Take 10 mg by mouth every evening. Active Lactobacillus (ACIDOPHOLUS PO) Take 1 Tab by mouth every evening. Active fluticasone (Flonase) 50 MCG/ACT Suspension 1-2 Sprays by Nasal route daily as needed. Use in each nostril as directed. Active Multiple Vitamins-Minera ls (EYE VITAMINS PO) Take by mouth every morning. Active Family History Medical History Relation Name Comments Dementia Father Breast Cancer Mother Heart Disease Mother Relation Name Status Comments Father Mother Social History Tobacco Use Types Packs/Day Years Used Date Smoking Tobacco: Never Smokeless Tobacco: Never Alcohol Use Standard Drinks/Week Comments Yes 0 (1 standard drink = 0.6 oz pur e alcohol) occassional Sex and Gender Information Value Date Recorded Sex Assigned at Not on file Legal Sex Male 5:38 PM CDT Gender Identity Not on file Sexual Orientation Not on file Last Filed Vital Signs Vital Sign Reading Time Taken Comments Blood Pressure 94/69 10/05/2020 6:40 AM [employer] Pulse 68 10/05/2020 5:34 AM [employer] Temperature 36 C (96.8 F) 10/05/2020 6:40 AM [employer] Respiratory Rate 14 10/05/2020 6:40 AM [employer] Oxygen Saturation 98% 10/05/2020 6:40 AM [employer] Inhaled Oxygen Concentration - - Weight 75.3 kg (166 lb) 09/01/2020 1:00 PM CDT Height 177.8 cm (5' 10 ) 09/01/2020 1:00 PM CDT Body Mass Index 23.82 09/01/2020 1:00 PM CDT Plan of Treatment Health Maintenance Due Date Last Done Comments Hepatitis C Virus (HCV) Screening 1950 TdaP Immunization 1950 Cologuard 2000 Immunochemical Fecal Occult Blood 2000 Pneumococcal Immunization (5 0+ years) (1 of 1 - PCV) 2000 Zoster Immunization (1 of 2) 2000 Influenza Immunization (#1) 2024 SARS-COV-2 Immunization ( - season) 2024 Colonoscopy 10/05/2025 10/05/2020 Colorectal Cancer Screening 10/05/2025 Respiratory Syncytial Virus (RSV) Immunization (Adult) (1 - 1-dose 75+ series) 2025 10/05/2020 Hepatitis B Immunization Aged Out No longer eligible based on patient's age to complete this topic Meningococcal Immunization (ACWY) Aged Out No longer eligible based on patient's age to complete this topic Rotavirus Immunization Aged Out No lo nger eligible based on patient's age to complete this topic [facility] [id number] Care Teams Ship Loader Relationship Specialty Start Date End Date Lei Ng MD PCP - General Family Medicine 10/05/20
--- OUTSIDE RECORDS SUMMARY | 2025-02-11 16:37 | XMS_ITS ---
Author Organization [facility] Address [address] [place] [address] Care Team Providers Care Event Set Up Specialist Name Role Phone Lei Ng MD Primary Care Provider Lei Ng MD Unavailable [phone] Evgeny Dixon MD Unavailable [phone] Active Problems Problem Noted Date Diagnosed Date Fall 07/12/2021 Multiple rib fractures 07/12/2021 Hemothorax, right 07/12/2021 Hemothorax 07/12/2021 Fall (on) (from) other stairs and steps, initial encounter 07/12/2021 Marginal zone lymphoma of inguinal lymph nodes 0 06/20/2017 Acute posthemorrhagic anemia Current Oncology Plans No current plan information found. Past Plans No past plan information found. Radiation Treatments * No radiation treatments are documented for this patient in [facility]. Treatments may have been administered in another system. Lifetime Dose Tracking * Chemical Lifetime Dose Automatic Entry Manual Entr y Dose Length Product 1,917.3 mGy-cm 1,917.3 mGy-cm 0 mG y-cm
--- OUTSIDE RECORDS SUMMARY | 2025-02-11 16:37 | XMS_ITS | Clinical Summary ---
Author Organization [facility] Address [address] [place] [address] Phone Care Team Providers Care Occupational Therapy Teacher Name Role Phone Lei Ng MD Primary Care Provider Allergies Active Allergy Reactions Criticality Noted Date Comments Penicillins Other (See Comments) 06/20/2017 Unknown reaction Medications phenytoin sodium (DILANTIN) 100 mg extended release capsule Take 200 mg by mouth daily MWF take 300mg. Active lidocaine-prilo logan (EMLA) 2.5-2.5 % Cream Apply to port 30-60 min prior to use. 30 Gram 3 07/18/2017 Active Saccharomyces boulardii (FLORASTOR) 250 mg Capsule Take 250 mg by mouth daily. Active phenytoin sodium (DILANTIN) 100 mg extended release capsule 02/27/2020 Act armida atorvastatin (LIPITOR) 10 mg tablet Take 10 mg by mouth daily at bedtime. 11/02/2022 Active cyanocobalamin (VITAMIN B-12) 1,000 mcg Tablet, Sublingual TAKE 1 TABLET UNDER TONGUE ONCE DAILY 11/02/2022 Active tamsulosin (FLOMAX) 0.4 mg capsule TAKE 1 CAPSULE BY MOUTH AT BEDTIME 09/07/2022 Active Active Problems Problem Noted Date Diagnosed Date Marginal zone lymphoma of inguinal lymph nodes 0 06/20/2017 Encounters Date Type Department Care Team Description 02/11/2025 3:45 PM CDT Office Visit [facility] [place] [address] [place] [address] Ricky Batista MD Chronic anemia (Primary Dx) 02/09/2025 Orders Only [facility] [address] [place] [address] Ricky Batista MD Marginal zone lymphoma of inguinal lymph nodes (CMS/HCC) (Primary Dx) from Last 3 Months Family History Medical History Relation Name Comments Cancer Father Hypertension Father Breast Cancer Mother Diabetes Mother Heart Disease Mother No Known Problems Sister 1 Diabetes Sister 2 Unknown Sister 2 Relation Name Status Comments Father Mother Sister 1 Alive Sister 2 Alive Social History Tobacco Use Types Packs/Day Years Used Date Smoking Tobacco: Never Smokeless Tobacco: Never Tobacco Cessation:Counseling Given: Not Answered Alcohol Use Standard Drinks/Week Comments No 0 (1 standard drink = 0.6 oz pur e alcohol) Sex and Gender Information Value Date Recorded Sex Assigned at Not on file Legal Sex Male 4:32 AM [employer] Gender Identity Not on file Sexual Orientation Not on file Last Filed Vital Signs Vital Sign Reading Time Taken Comments Blood Pressure 128/81 02/11/2025 3:16 PM CDT Pulse 70 02/11/2025 3:16 PM CDT Temperature 36.1 C (96.9 F) 02/11/2025 3:16 PM CDT Respiratory Rate 15 02/11/2025 3:16 PM CDT Oxygen Saturation 93% 02/11/2025 3:16 PM CDT Inhaled Oxygen Concentration - - Weight 84.2 kg (185 lb 9.6 oz) 02/11/2025 3:16 P M CDT Height 177.8 cm (5' 10 ) 04/28/2020 11:20 AM CDT Body Mass Index 26.63 04/28/2020 11:20 AM CDT Plan of Treatment Upcoming Encounters Date Type Department Care Team (Late st Contact Info) Description 02/11/2026 11:30 AM CDT Office Visit [facility] [address] [place] [address] Ricky Batista MD [address] [facility] [address] [place] [address] Health Maintenance Due Date Last Done Comments DTAP/TDAP/TD VACCINES (1 - Tdap) 1969 COLORECTAL SCREENING 1995 Colorectal Cancer Screening 1995 FIT-DNA Q 3 years 1995 FIT/FOBT Q 1 year 1995 Flex Sig/CT Colonography Q 5 years 1995 PNEUMOCOCCAL VACCINE 50+ YEARS (1 of 1 - PCV) 12/03/19 ZOSTER VACCINE (1 of 2) 2000 INFLUENZA VACCINE (#1) 2024 Medicare Advantage ([place]) Prev entative Visit/Annual Wellness Visit 11/26/2024 RSV VACCINE (60+ or ) (1 - 1-dose 75+ series) 2025 Insurance [facility] Care Teams Occupational Therapy Teacher Relationship Specialty Start Date End Date Lei Ng MD [address] [place] [id number] PCP - General Family Practice 11/14/23
--- OUTSIDE RECORDS SUMMARY | 2025-02-11 16:37 | XMS_ITS | Clinical Summary ---
Author Organization [facility] Address [address] [place] [address] Care Team Providers Care Design Engineer Name Role Phone Lei Ng MD Primary Care Provider Lei Ng MD Unavailable [phone] Evgeny Dixon MD Unavailable [phone] Source Comments [facility],non-owned Affiliates and Associated Physician Practices is amultiple site organization consisting of ambulatory clinics and hospital sitesin [place], [place], [place] and [place]. This disclosure is being madepursuant to the Care Everywhere program and may not contain all information available regarding this patient. Last updated 18.[facility] Allergies Active Allergy Reactions Criticality Noted Date Comments Penicillins Unknown 07/12/2021 Medications * Be aware that medications may not be up to date on this document. Alwaysverify current medications with the patient. Medication Sig Dispensed Refills Start Date End Date Status lisinopril (PRINIVIL; ZESTRIL) 10 MG tablet Take 1 (one) tablet by mouth once daily Active PHENobarbital (LUMINAL) 64.8 MG tablet Take 1 (one) tablet by mouth 2 times daily Active phenytoin ER (DILANTIN) 100 MG capsule Take 3 (three) capsules by mouth every 2 days Alternates with taking 2 capsules (200 mg) po every other day. Active phenytoin ER (DILANTIN) 100 MG capsule Take 2 (two) capsules by mouth every 2 days Alternates with taking 3 capsules (300 mg) po every other day. Active tamsulosin (FLOMAX) 0.4 MG capsule Take 1 (one) capsule by mouth at bedtime At the same time every day after a meal. Active Multiple Vitamins-Minerals (PRESERVISION AREDS 2 PO) Take 1 tablet by mouth 2 times daily Active vitamin D, cholecalciferol, 50 MCG (2000 UT) tablet Take 1 (one) tablet by mouth once daily Active fexofenadine (DELANO) 180 MG tablet Take 1 (one) tablet by mouth once daily as needed for Allergies Active oxyCODONE, immediate release, (ROXICODONE) 5 MG tablet Take 1 (one) tablet by mouth every 6 hours as needed for Pain 24 tablet 07/22/2021 Active acetaminophen (TYLENOL) 500 MG tablet Take 2 (two) tablets by mouth every 8 hours Maximum allowable Acetaminophen amount = 4 Grams (4000 mg) / 24 hours. 07/22/2021 Active senna (SENOKOT EXTRA STRENGTH) 17.2 MG Take 17.2 mg by mouth once daily 14 tablet 07/22/2021 Active Additional Information Patient not taking.Reported on 08/11/2021 fluticasone propionate (FLONASE) 50 MCG/ACT nasal spray [place] 1 (one) spray to 2 (two) sprays into the nose Active HYDROcodone-acetam inophen (NORCO) 5-325 MG tablet Take 1 (one) tablet by mouth every 4 hours as needed pain 10/13/2020 Active polyethylene glycol 3350 (MIRALAX) 17 GM/SCOOP powder MIX 17 GRAMS WITH 8 OZ LIQUID AND DRINK ONCE DAILY 10/16/2020 Active saccharomyces (FLORASTOR EXTRA STR) 250 MG capsule Take 1 (one) capsule by mouth once daily Active sulfamethoxazole-t rimethoprim (BACTRIM DS; SEPTRA DS) 800-160 MG tablet Take 1 tablet by mouth 2 times daily 01/11/2021 Active Active Problems Problem Noted Date Diagnosed Date Fall 07/12/2021 Multiple rib fractures 07/12/2021 Hemothorax, right 07/12/2021 Hemothorax 07/12/2021 Fall (on) (from) other stairs and steps, initial encounter 07/12/2021 Marginal zone lymphoma of inguinal lymph nodes 0 06/20/2017 Acute posthemorrhagic anemia Social History Tobacco Use Types Packs/Day Years Used Date Smoking Tobacco: Never Smokeless Tobacco: Never Tobacco Cessation:Counseling Given: No Alcohol Use Standard Drinks/Week Comments Not Currently 1 (1 standard drink = 0.6 oz pur e alcohol) Sex and Gender Information Value Date Recorded Sex Assigned at Not on file Gender Identity Not on file Sexual Orientation Not on file Last Filed Vital Signs Vital Sign Reading Time Taken Comments Blood Pressure 148/85 08/11/2021 1:29 PM CDT Pulse 78 08/11/2021 1:29 PM CDT Temperature 36.4 C (97.5 F) 08/11/2021 1:29 PM CDT Respiratory Rate 16 08/11/2021 1:29 PM CDT Oxygen Saturation 97% 08/11/2021 1:29 PM CDT Inhaled Oxygen Concentration - - Weight 75.3 kg (166 lb) 08/11/2021 1:29 PM CDT Height 177.8 cm (5' 10 ) 07/12/2021 12:01 PM CDT Body Mass Index 23.82 07/12/2021 12:01 PM CDT Plan of Treatment Health Maintenance Due Date Last Done Comments COLOGUARD (AGES 45-75) - COL ON CA SCREENING 1950 COLON MONITORING 1950 COLONOSCOPY - COLON CA SCREENING 1950 CT COLONOGRAPHY - COLON CA SCREENING 1950 Colorectal Cancer Screening 1950 FIT - COLON CA SCREENING 1950 FLEX SIG - COLON CA SCREENING 1950 LIPID TESTING 1950 HEPATITIS C SCREENING 11/28/1968 DTAP/TDAP/TD VACCINES (1 - Tdap) 1969 PNEUMOCOCCAL VACCINE 50+ (1 of 2 - PCV) 1969 ZOSTER VACCINE (1 of 2) 1969 Respiratory Syncytial Virus (RSV) Vaccine Pt: or over 60 yrs (1 - Risk 60-74 years 1-dose series) 2010 COVID-19 VACCINE (3 - Modern a risk series) 03/21/2021 02/21/2021, 01/24/2021 INFLUENZA VACCINE (#1) 2024 09/07/2020 DEPRESSION SCREENING 11/26/2024 MEDICARE AWV CALENDAR YEAR 2024 HEPATITIS B VACCINE Aged Out No longe r eligible based on patient's age to complete this topic HIB VACCINE Aged Out No longer eligi ble based on patient's age to complete this topic HPV VACCINE Aged Out No longer eligi ble based on patient's age to complete this topic MENINGOCOCCAL (Group B) VACCINE SHARED DECISION-MAKING Aged Out No longer eligible based on patient's age to complete this topic MENINGOCOCCAL GROUPS A/C/Y/W VACCINE Aged Out No longer eligible b ased on patient's age to complete this topic Insurance Payer Benefit Plan / Group Subscriber ID Effective Dates Phone Address Type AETNA AETNA MEDICARE ADV PPO/HMO/PFFS [id number] 11/26/2022-Prese nt [address] [place] [address] Medicare- Managed Care AETNA AETNA MEDICARE ADV PPO/HMO/PFFS [id number] 11/26/2022-Prese nt [address] [place] [address] Medicare- Managed Care AETNA AETNA MEDICARE ADV PPO/HMO/PFFS [id number] 11/26/2022-Prese nt [address] [place] [address] Medicare- Managed Care AETNA AETNA MEDICARE ADV PPO/HMO/PFFS [id number] 11/26/2022-Prese nt [address] [place] [address] Medicare- Managed Care AETNA AETNA MEDICARE ADV PPO/HMO/PFFS [id number] 11/26/2022-Prese nt [address] [place] [address] Medicare- Managed Care AETNA AETNA MEDICARE ADV PPO/HMO/PFFS [id number] 11/26/2022-Prese nt [address] [place] [address] Medicare- Managed Care AETNA AETNA MEDICARE ADV PPO/HMO/PFFS [id number] 11/26/2022-Prese nt [address] [place] [address] Medicare- Managed Care AETNA AETNA MEDICARE ADV PPO/HMO/PFFS [id number] 11/26/2022-Prese nt [address] [place] [address] Medicare- Managed Care AETNA AETNA MEDICARE ADV PPO/HMO/PFFS [id number] 11/26/2022-Prese nt [id number] [address] [place] [address] Medicare- Managed Care AETNA AETNA MEDICARE ADV PPO/HMO/PFFS [id number] 11/26/2022-Prese nt [id number] [address] [place] [address] Medicare- Managed Care UHC MANAGED MEDICARE ADV UHC COMPLETE CHOICE MEDICARE ADV PPO [id number] 11/26/2017-Prese nt [address] [address] [place] [address] Medicare- Managed Care AETNA AETNA MEDICARE ADV PPO/HMO/PFFS [id number] 11/26/2022-Prese nt [address] [place] [address] Medicare- Managed Care UHC MANAGED MEDICARE ADV UHC COMPLETE CHOICE MEDICARE ADV PPO [id number] 11/26/2017-Prese nt [address] [address] [place] [address] Medicare- Managed Care AETNA AETNA MEDICARE ADV PPO/HMO/PFFS Effective for all dates [address] [place] [address] Medicare- Managed Care [employer] MANAGED MEDICARE ADV UHC COMPLETE CHOICE MEDICARE ADV PPO [id number] 11/26/2017-Prese nt [address] [address] [place] [address] Medicare- Managed Care U[employer] MANAGED MEDICARE ADV UHC COMPLETE CHOICE MEDICARE ADV PPO [id number] 11/26/2017-Prese nt [address] [address] [place] [address] Medicare- Managed Care AETNA AETNA PPO/POS/OA Effective for all dates [address] [place] [address] PPO [facility] MANAGED MEDICARE ADV [facility] COMPLETE CHOICE MEDICARE ADV PPO [id number] 11/26/2017-Prese nt [address] [address] [place] [address] Medicare- Managed Care [facility] MANAGED MEDICARE ADV [facility] MEDICARE ADV HMO/POS [id number] 02/24/2021-Prese nt [address] [address] [place] [address] Medicare- Managed Care [facility] MANAGED MEDICARE ADV [facility] COMPLETE CHOICE MEDICARE ADV PPO [id number] 11/26/2017-Prese nt [address] [address] [place] [address] Medicare- Managed Care [facility] MANAGED MEDICARE ADV [facility] COMPLETE CHOICE MEDICARE ADV PPO [id number] 02/24/2021-Prese nt [address] [address] [place] [address] Medicare- [facility] Advance Directives * Full Code (Latest Code Status on File) Date Activated Date Inactivated Comments 07/12/2021 2:00 PM 07/22/2021 12:31 PM Care Teams Design Engineer Relationship Specialty Start Date End Date Lei Ng MD [address] [place] [address] PCP - General 07/19/21 Lei Ng MD [address] [place] [address] Family Medicine 07/19/21 Evgeny Dixon [place] [address] 07/12/21
--- OUTSIDE RECORDS SUMMARY | 2025-02-11 16:37 | XMS_ITS | Encounter Summary ---
Author Organization [facility] Address [address] [place] [address] Care Team Providers Care Burn Out Scarfing Operator Name Role Phone Lei Ng MD Primary Care Provider Reason for Visit * Reason Comments Cancer Follow Up Encounter Details Date Type Department Care Team (Late st Contact Info) Description 02/11/2025 3:45 PM CDT Office Visit [facility] Oncology and Hematology - [place] [address] [facility] [address] [place] [address] Ricky Batista MD [address] [facility] [address] [place] [address] Chronic anemia (Primary Dx) Social History Tobacco Use Types Packs/Day Years Used Date Smoking Tobacco: Never Smokeless Tobacco: Never Tobacco Cessation:Counseling Given: Not Answered Alcohol Use Standard Drinks/Week Comments No 0 (1 standard drink = 0.6 oz pur e alcohol) Sex and Gender Information Value Date Recorded Sex Assigned at Not on file 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 Bone marrow biopsy negative for lymphoma. CURRENT TREATMENT Surveillance TREATMENT HISTORY Bendamustine Rituxan x6 cycle completed November 2017 SUBJECTIVE Patient came to the office for follow-up visit. He has gained 10 pound weight. Denies any new lumpsbumps and lymphadenopathy. Denies any chest pain and shortness of breath. He is swimming 4 times a week and performing regular exercise. No other new complaint. Review of system Constitutional: Patient did not mention fevers, sweats, denies any tiredness and fatigue, 10 pound weight gain HEENT: Patient did not mention sinus congestion, hearing or vision problems Respiratory: Patient did not mention cough, dyspnea, wheeze Cardiovascular: Patient did not mention chest pain, exertional chest pressure/discomfort, nausea, syncope, shortness of breath GI: Patient did not mention constipation, diarrhea, dsyphagia, reflux symptoms, vomiting, melena : Patient did not mention dysuria, frequency, incontinence, urgency Integumentary system: no lymphadenopathy, sweats, flushing Musculoskeletal: Patient not mention: myalgia, arthralgia Neurological: Patient did not mention blurry or disturbed vision, numbness/weakness, dizziness Skin: No lumps, bumps or rashes. 12 point review of system was reviewed Objective: Vital signs in last 24 hours: As per nursing note Exam: General appearance: alert, cooperative, no distress, appears stated age Head: normocephalic, without obvious abnormality, atraumatic Eyes: conjunctivae/corneas clear, EOM's intact Ears: normal external ear canals AU Nose: Nares normal. Septum midline. Mucosa normal. No drainage or sinus tenderness Throat: Lips, mucosa, and tongue normal. Teeth and gums normal Neck: supple, symmetrical, trachea midline. Lungs: clear to auscultation bilaterally Heart: regular rate and rhythm, S1, S2 normal, no murmur, click, rub or gallop Abdomen: soft, non-tender. Bowel sounds normal. No masses, No organomegaly Extremities: extremities normal, atraumatic, no cyanosis or edema Skin: Skin color, texture, turgor normal. No rashes or lesions Lymph nodes: No palpable lymphadenopathy Neuro: No obvious focal deficit Exam as above PATH LABS Labs from October 31, 2022 showed WBC 4.2 hemoglobin 14.1 platelet 203,000 neutrophils 53% Vercyte 33% creatinine 0.8 total bilirubin 0.3 PSA 0.7 Labs from November 09 showed creatinine 0.8 total bilirubin 0.4 LDH 182 WBC 4.5 hemoglobin 13.6 platelet 1 69,000 neutrophil 50% lymphocyte 29% Labs from February 11 showed creatinine 0.8 WBC 5.5 hemoglobin 13.1 platelet 172,000 neutrophils 54% lymphocyte 26% Assessment: Plan: Patient Active Problem List Diagnosis Date Noted Marginal zone lymphoma of inguinal lymph nodes (CMS/HCC) 06/20/2017 Emerald marginal zone lymphoma stage II status post excisional biopsy of left parietal lymphadenopathy on June 11, 2017. Bone marrow biopsy came back negative. Patient completed 6 cycles of chemotherapy with bendamustine Rituxan on November 2017. There is no evidence of relapse of lymphoma on my examination. Labs are stable. Will continue to observe and see him back on yearly basis. Anemia. Patient is taking vitamin B12 daily. I will check iron studies and B12 level on return to clinic in a year. He is not symptomatic with tiredness and fatigue. Pancytopenia. Resolved. This was secondary to seizure medication. History of seizure disorder. Stable on phenytoin and phenobarbital. Follow-up in 1 year. 02/11/2025 Ricky Batista MD documented in this encounter Plan of Treatment Upcoming Encounters Date Type Department Care Team (Late st Contact Info) Description 02/11/2026 11:30 AM CDT Office Visit [facility] Oncology and Hematology - [place] [address] [facility] [address] [place] [address] Ricky Batista MD [address] [facility] [address] [place] [address] Scheduled Orders Name Type Priority Associated Diagnoses Orde r Schedule CBC WITH DIFFERENTIAL Lab Stat Chronic anemia Expected: 02/11/2026, Expires: 02/11/2026 COMPREHENSIVE METABOLIC PANEL Lab Stat Chronic anemia Expected: 02/11/2026, Expires: 02/11/2026 LACTATE DEHYDROGENASE Lab Routine Chronic anemia Expected: 02/11/2026, Expires: 02/11/2026 VITAMIN B12 LEVEL Lab Routine Chronic anemia Expected: 02/11/2026, Expires: 02/11/2026 IRON, TIBC, AND PERCENT SATURATION Lab Routine Chronic anemia Expected: 02/11/2026, Expires: 02/11/2026 FERRITIN Lab Routine Chronic anemia Expected: 02/11/2026, Expires: 02/11/2026 documented as of this encounter Visit Diagnoses Diagnosis Chronic anemia- Primary Anemia, unspecified documented in this encounter Care Teams Burn Out Scarfing Operator Relationship Specialty Start Date End Date Lei Ng MD [address] [place] [address] PCP - General Family Practice 11/14/23 documented as of this encounter
--- OUTSIDE RECORDS SUMMARY | 2025-02-11 16:37 | XMS_ITS | Encounter Summary ---
Author Organization [facility] Address [address] [place] [address] Care Team Providers Care Sack Cleaning Hand Name Role Phone Evgeny Dixon MD Primary Care Provider [phone] Lei Ng MD Primary Care Provider Lei Ng MD Primary Care Provider Lei Ng MD Unavailable [phone] Evgeny Dixon MD Unavailable [phone] Encounter Details Date Type Department Care Team (Late st Contact Info) Description 05/22/2019 Lab Requisition [facility] Care DermPath Lab [address] [facility] [place] [address] Jarad Melo MD [address] [place] [address] Social History Tobacco Use Types Packs/Day Years Used Date Smoking Tobacco: Never Assessed Sex and Gender Information Value Date Recorded Sex Assigned at Not on file Gender Identity Not on file Sexual Orientation Not on file documented as of this encounter Plan of Treatment Not on file documented as of this encounter Procedures Procedure Name Priority Date/Time Associated Diagnosis Comments DERMATOPATHOLOGY Routine 05/21/2019 12:0 0 AM CDT documented in this encounter Results * DERMATOPATHOLOGY (05/21/2019 12:00 AM CDT) Case Report Dermatopathology Report Case: [id number] Authorizing Provider: Jarad Melo MD Collected: 05/21/2019 12:00 AM Pathologist: Candida Frazier MD Received: 05/22/2019 12:46 PM Specimen: Skin, post neck 1:54 PM CDT DERMATOPATHOLOGY LABORATORY Final Diagnosis Specimen A. SKIN, post neck: EPIDERMOID CYST (L72.0) 1:54 PM CDT DERMATOPATHOLOGY LABORATORY Clinical History R/O cyst. 1:54 PM CDT DERMATOPATHOLOGY LABORATORY Gross Description Specimen A: Received is one formalin filled container labeled with the patient's name and designated post neck. The specimen consists of a [id number] excision, bisected. Jar 0. 1:54 PM CDT DERMATOPATHOLOGY LABORATORY Microscopic Description Specimen A. SKIN, post neck: Within the dermis, there is a space lined by epithelium that resembles normal epidermis and the infundibular portion of the hair follicle. 1:54 PM CDT DERMATOPATHOLOGY LABORATORY Disclaimer An external and internal positive and negative controls are appropriate for the histochemical, immunohistochemical and immunofluorescence stain(s) in this case (if any), except where stated explicitly. The performance characteristics of the stain(s) cited in this report were developed and its performance characteristic determined by the Dermatopathology Laboratory at [facility], directed by Dr. Anel Frazier. These tests need not be, and therefore are not, approved by the [place] Food and Drug Administration. The tests are used for clinical purposes. Billing Codes Specimen Charges Stain Charges 31258 1 1:54 PM CDT DERMATOPATHOLOGY LABORATORY Embedded Images 1:54 PM CDT DERMATOPATHOLOGY LABORATORY Pathology/Cytolog y TISSUE SPECIMEN FROM SKIN / Unknown 05/21/2019 05/22/2019 12:46 PM CDT Jarad Melo MD LAB - PATHOLOGY/CYTO LOGY ORDERABLES DERMATOPATHOLOGY LABORATORY [facility] - Department of Dermatology [address] [facility]th [address] Lab [address] [place], [place] [address] [place] [address] documented in this encounter Visit Diagnoses Not on filedocumented in this encounter Additional Health Concerns Infection Onset Date Last Indicated Resolved Time COVID-19 Under Investigation 07/12/2021 07/12/2021 07/12/2021 4:39 PM CDT documented as of this encounter Care Teams Sack Cleaning Hand Relationship Specialty Start Date End Date Evgeny Dixon MD [address] [place], [place] [id number] PCP - General 05/26/18 07/11/21 Lei Ng MD [address] [place] [address] PCP - General Family Medicine 07/12/21 07/18/21 Lei gN MD [address] [place] [phone] PCP - General 07/19/21 Lei Ng MD [address] [place] [address] Family Medicine 07/19/21 Evgeny Dixon MD [address] [place] [id number] 07/12/21 documented as of this encounter
[2025-02-11 18:00] LABS: Alanine Aminotransferase 17 U/L (6-50); Albumin Level 4.3 g/dL (3.5-5.1); Alkaline Phosphatase 103 U/L (38-126); Anion Gap 9 mmol/L (4-12); Aspartate Amino Transferase 26 U/L (17-59); Bilirubin,Total 0.3 mg/dL (0.2-1.3); Blood Urea Nitrogen 17 mg/dL (9-20); Calcium 9.2 mg/dL (8.4-10.2); Carbon Dioxide 26 mmol/L (22-30); Chloride 104 mmol/L (98-107); Estimated Glomerular Filt Rate > 60; Glucose 101 mg/dL (65-110); Lactate Dehydrogenase 189 U/L (120-246); Potassium 4.2 mmol/L (3.4-5.0); Sodium 139 mmol/L (137-145)
== END 2025-02-11 15:04 | disposition home or self-care (01) ==
LOC: ANHLAB 15:04
PROVIDERS: PCP Family Medicine; Visit Provider Internal Medicine Hematology & Oncology
DX: C85.85 Other specified types of non-Hodgkin lymphoma, lymph nodes of inguinal region and lower limb (principal)
CPT/HCPCS: 36415; 80047; 80053; 83615; 85025

== ENCOUNTER 2025-10-06 00:31 | Day surgery (SDC) | payer MEDICARE, SELFPAY ==
--- OUTSIDE RECORDS SUMMARY | 2013-05-23 10:00 | XMS_ITS | Continuity of Care Document ---
Author Organization [facility] Address [address] [place] [address] [address] [place] [address] Phone Care Team Providers Care Warehouse Stock Clerk Name Role Phone Orion MS, OTR/L, CHT, Ceci Unavailable Unavailable Procedures Procedure Date OT RE-EVALUATION THERAPEUTIC EXERCISES NEUROMUSCULAR RE-ED MANUAL THERAPY FUNC ACTIVITY 15 MIN HOT/COLD PACK THERAPEUTIC EXERCISES NEUROMUSCULAR RE-ED MANUAL THERAPY FUNC ACTIVITY 15 MIN THERAPEUTIC EXERCISES NEUROMUSCULAR RE-ED FUNC ACTIVITY 15 MIN HOT/COLD PACK THERAPEUTIC EXERCISES NEUROMUSCULAR RE-ED FUNC ACTIVITY 15 MIN HOT/COLD PACK THERAPEUTIC EXERCISES NEUROMUSCULAR RE-ED MANUAL THERAPY FUNC ACTIVITY 15 MIN THERAPEUTIC EXERCISES NEUROMUSCULAR RE-ED FUNC ACTIVITY 15 MIN THERAPEUTIC EXERCISES NEUROMUSCULAR RE-ED FUNC ACTIVITY 15 MIN THERAPEUTIC EXERCISES NEUROMUSCULAR RE-ED MANUAL THERAPY FUNC ACTIVITY 15 MIN HOT/COLD PACK THERAPEUTIC EXERCISES NEUROMUSCULAR RE-ED FUNC ACTIVITY 15 MIN HOT/COLD PACK THERAPEUTIC EXERCISES NEUROMUSCULAR RE-ED MANUAL THERAPY FUNC ACTIVITY 15 MIN HOT/COLD PACK THERAPEUTIC EXERCISES NEUROMUSCULAR RE-ED MANUAL THERAPY FUNC ACTIVITY 15 MIN HOT/COLD PACK THERAPEUTIC EXERCISES NEUROMUSCULAR RE-ED MANUAL THERAPY FUNC ACTIVITY 15 MIN HOT/COLD PACK OT RE-EVALUATION THERAPEUTIC EXERCISES NEUROMUSCULAR RE-ED FUNC ACTIVITY 15 MIN HOT/COLD PACK Theraputty THERAPEUTIC EXERCISES NEUROMUSCULAR RE-ED MANUAL THERAPY FUNC ACTIVITY 15 MIN HOT/COLD PACK THERAPEUTIC EXERCISES NEUROMUSCULAR RE-ED MANUAL THERAPY FUNC ACTIVITY 15 MIN HOT/COLD PACK THERAPEUTIC EXERCISES NEUROMUSCULAR RE-ED MANUAL THERAPY FUNC ACTIVITY 15 MIN HOT/COLD PACK THERAPEUTIC EXERCISES NEUROMUSCULAR RE-ED MANUAL THERAPY FUNC ACTIVITY 15 MIN HOT/COLD PACK OT EVALUATION THERAPEUTIC EXERCISES MANUAL THERAPY FUNC ACTIVITY 15 MIN HOT/COLD PACK Advance Directives Directive Yes / No Effective Date File Name No Information Encounters Encounter Description Practice Location Reason(s) For Visit Diagnoses Date Provider Providers Copied on Encounter [facility], [address] [address], [place], [place], [id number], [place] tel:[phone] [place] No Information 3 Orion Ornelas. [address] [place] [address], [address], [place], [address], [place]. tel:[phone] Referring Provider: Eliecer Reed, [address] [place] [address] [address], [place], [address]. [facility], [address], [place], [place], [id number], tel:[phone] [place] No Information Sky-2 4-201 3 Hauschild Ceci. [address] [place] [address], [address], [place], [place], [facility], [place]. tel:[phone] Referring Provider: Eliecer Reed, [address] [place] [address] [address], [place], [address]. [facility], [address], [place], [place], [id number], [place] tel:[phone] [place] No Information Sky-2 1-201 3 Hauschild Ceci. [address] [place] [address], [address], [place], [place], [facility], [place]. tel:[phone] Referring Provider: Eliecer Reed, [address] [place] [address] [address], [place], [address]. [facility], [address], [place], [place], [id number], [place] tel:[phone] [place] No Information Sky-1 7-201 3 Hauschild Ceci. [address] [place] [address], [address], [place], [address], [place]. tel:[phone] Referring Provider: Eliecer Reed, [address] [place] [address] [address], [place], [address]. [facility], [address], [place], [place], [id number], [place] tel:[phone] [place] No Information Sky-1 2-201 3 Hauschild Ceci. [address] [place] [address], [address], [place], [address], [place]. tel:[phone] Referring Provider: Eliecer Reed, [address] [place] [address] [address], [place], [address]. [facility], [address], [place], [id number], tel:[phone] [place] No Information Sky-1 0-201 3 Hauschild Ceci. [address] [place] [address], [address], [place], [place], [facility], . tel:[phone] Referring Provider: Eliecer Reed, [facility] [address], [place], [address]. [facility], [address], [place], [place], [id number], tel:[phone] [place] No Information Sky-0 7-201 3 Hauschild Ceci. [address] [place] [address], [address], [place], [facility], . tel:[phone] Referring Provider: Eliecer Reed, [address] [place] [address] [address], [place], [address]. [facility], [address] [facility] [address], [place], [place], [id number], tel:[phone] [place] No Information Sky-0 3-201 3 Hauschild Ceci. [address] [place] [address], [address], [place], [facility], [place]. tel:[phone] Referring Provider: Eliecer Reed, [address] [place] [address] [address], [place], [address]. [facility], [address] [facility] [address] [facility] [address], [place], [id number], tel:[phone] [place] No Information May-3 1-201 3 Hauschild Ceci. [address] [place] [address], [address], [place], [facility], [place]. tel:[phone] Referring Provider: Eliecer Reed, [address] [place] [address] [address], [place], [address]. [facility], [address], [place], [place], [id number], tel:[phone] [place] No Information May-2 9-201 3 Hauschild Ceci. [address] [place] [address], [address], [place], [facility], [place]. tel:[phone] Referring Provider: Eliecer Reed, [facility] [address], [place], [address]. [address], [place], [id number], tel:[phone] [place] No Information May-2 4-201 3 Maddie Dayana. [address] [place] [address], [address], [place], [facility], . tel:[phone] Referring Provider: Eliecer Reed, [facility] [address], [place], [address]. [facility] [address], [place], [place], [id number], tel:[phone] [place] No Information May-2 0-201 3 Maddie Dayana. [address] [place] [address], [address], [place], [facility], . tel:[phone] Referring Provider: Eliecer Reed, [address] [place] [address] [address], [place], [address]. [facility], [address] [place] [address] [address], [place], [id number], tel:[phone] [place] No Information May-1 7-201 3 Hauscpam Ornelas. [address] [place] [address], [address], [place], [facility], . tel:[phone] Referring Provider: Eliecer Reed, [address] [place] [address] [address], [place], [address]. [facility] [address], [place], [place], [id number], [place] tel:[phone] [place] No Information May-1 3-201 3 Hamariano Ornelas. [address] [place] [address], [address], [place], [facility], [place]. tel:[phone] Referring Provider: Eliecer Reed, [facility] [address], [place], [address]. [facility] [address], [place], [place], [id number], tel:[phone] [place] No Information May-1 0-201 3 Hauschild Ceci. [address] [place] [address], [address], [place], [facility], . tel:[phone] Referring Provider: Eliecer Reed, [address] [place] [address] [address], [place], [facility]. [address], [place], [id number], tel:[phone] [place] No Information May-0 6-201 3 Hauschild Ceci. [address] [place] [address], [address], [place], [facility], . tel:[phone] Referring Provider: Eliecer Reed, [address] [place] [address] [address], [place], [facility] [place] [place]. [facility], [address] [place] [address], [id number], tel:[phone] [place] No Information May-0 3-201 3 Hauschild Ceci. [address] [place] [address], [address], [place], [facility], . tel:[phone] Referring Provider: Eliecer Reed [address] [place] [address] [address], [place], [facility] [place]. [facility], [address] [place] [address], [place], [id number], tel:[phone] [place] Pain in joint involving hand May-0 1-201 3 Hauschild Ceci. [address] [place] [address], [address], [place], [facility], . tel:[phone] Referring Provider: Eliecer Reed [address] [place] [address] [address], [place], [facility] [place]. Family History Family Member Type Diagnosis Age At Onset No Information Payers Payer name Insurance type Covered alliance party ID Chantalea meredithandreia(s) [facility] CI [id number] [facility] Social History Type Description Quantity Date Captured Comments Sex Male Smoking Status No Information Chief Complaint And Reason For Visit No Information Reason For Referral Reason For Referral No Information History Of Present Illness Encounter Date Complaint History Of Prese nt Illness No Information Functional Status Date Functional Assessmen t No Information Instructions Date Instruction Additional Infor mation No Information Assessments Type Assessment Date No Information Patient Care Teams Name Effective Dates (start - stop) Status Members No Information
[2025-09-22 14:46] VITALS: BMI 25.8
--- OUTSIDE RECORDS SUMMARY | 2025-10-06 00:34 | XMS_ITS | Clinical Summary ---
Author Organization [facility] Address [address] [place] [address] Phone Care Team Providers Care Sheet Rock Applicator Name Role Phone Lei Ng MD Primary [...] Encounters Date Type Department Care Team Description 09/08/2025 External Device Data STL ABSTRACTION Provider, Abstract 08/11/2025 External Device Data ST[facility] ABSTRACTION Provider, Abstract 07/28/2025 External Device Data ST[facility] ABSTRACTION Provider, Abstract 07/28/2025 External Device Data ST[facility] ABSTRACTION Provider, Abstract 07/15/2025 External Device Data STL ABSTRACTION Provider, Abstract from Last 3 Months Family History Medical [...] on file 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 Gender Identity Not on file Sexual Orientation [...] P M CDT Height 177.8 cm (5' 10) 04/28/2020 11:20 AM CDT Body Mass Index 26.63 04/28/2020 11:20 AM CDT Plan of Treatment Upcoming Encounters Date Type Department Care Team (Late st Contact Info) Description 02/11/2026 11:30 AM CDT Office Visit [facility] Oncology and Hematology - [place] [address] [facility] [address] [place] [address] Ricky Batista MD [address] [facility] [address] [place] [address] Health Maintenance Due Date Last Done Comments DTAP/TDAP/TD VACCINES (1 - Tdap) 1969 COLORECTAL SCREENING 1995 Colorectal Cancer Screening 1995 FIT-DNA Q 3 years 1995 FIT/FOBT Q 1 year 1995 Flex Sig/CT Colonography Q 5 years 1995 PNEUMOCOCCAL VACCINE 50+ YEARS (1 of 1 - PCV) 12/03/19 ZOSTER VACCINE (1 of 2) 2000 INFLUENZA VACCINE (#1) 2025 RSV VACCINE (60+ or ) (1 - 1-dose 75+ series) [address] [facility] M[facility] Care Teams Sheet Rock Applicator Relationship Specialty Start Date End Date Lei Ng MD [address] [place] [address] PCP - General Family Practice 11/14/23
--- OUTSIDE RECORDS SUMMARY | 2025-10-06 00:34 | XMS_ITS ---
Author Organization [facility] Address [address] [place] [address] Care Team Providers Care Keno Attendant Name Role Phone Lei Ng MD Primary Care Provider Lei Ng MD Unavailable [phone] Evgeny Dixon MD Unavailable [phone] Active Problems Problem Noted Date Diagnosed Date Fall 07/12/2021 Multiple rib fractures 07/12/2021 Hemothorax, right 07/12/2021 Hemothorax 07/12/2021 Fall (on) (from) other stairs and steps, initial encounter 07/12/2021 Marginal zone lymphoma of inguinal lymph nodes 0 06/20/2017 Acute posthemorrhagic anemia Current Treatment and Therapy Plans No current plan information found. Past Treatment and Therapy Plans No past plan information found. Lifetime Dose Tracking * Chemical Lifetime Dose Automatic Entry Manual Entr y Dose Length Product 1,917.3 mGy-cm 1,917.3 mGy-cm 0 mG y-cm
--- OUTSIDE RECORDS SUMMARY | 2025-10-06 00:34 | XMS_ITS | Clinical Summary ---
Author Organization [facility] Address [address] [facility], [address] [address] Phone Care Team Providers Care Natural Gas Shothole Driller Name Role Phone Lei Ng MD Primary [...] Comments Blood Pressure 94/69 10/05/2020 6:40 AM [employer] Pulse 68 10/05/2020 5:34 AM [employer] Temperature 36 C (96.8 F) 10/05/2020 6:40 AM [employer] Respiratory Rate 14 10/05/2020 6:40 AM [employer] Oxygen Saturation 98% 10/05/2020 6:40 AM [employer] Inhaled Oxygen Concentration - - Weight 75.3 kg (166 lb) 09/01/2020 1:00 PM CDT Height 177.8 cm (5' 10) 09/01/2020 1:00 PM CDT Body Mass Index 23.82 09/01/2020 1:00 PM CDT Plan of Treatment Health Maintenance Due Date Last Done Comments Hepatitis C Virus (HCV) Screening 1950 TdaP Immunization 1950 Cologuard 1995 Immunochemical Fecal Occult Blood 1995 Pneumococcal Immunization (5 0+ years) (1 of 1 - PCV) 2000 Zoster Immunization (1 of 2) 2000 Medicare Initial AWV [id number] 11/26/2020 Influenza Immunization (#1) 2025 SARS-COV-2 Immunization ( - 2024- season) 2025 Colonoscopy 10/05/2025 10/05/2020 Colorectal Cancer Screening 10/05/2025 Respiratory Syncytial Virus (RSV) Immunization (Adult) (1 - 1-dose 75+ series) 2025 Hepatitis B Immunization Aged Out No longer eligible based on patient's age to complete this topic Human Papillomavirus (HPV) Immunization Aged Out No longer eligible b ased on patient's age to complete this topic Meningococcal Immunization (ACWY) Aged Out No longer eligible based on patient's age to complete this topic Rotavirus Immunization Aged Out No lo nger eligible based on patient's age to complete this topic Insurance [facility] Care Teams Natural Gas Shothole Driller Relationship Specialty Start Date End Date Lei Ng MD PCP - General Family Medicine 10/05/20
--- OUTSIDE RECORDS SUMMARY | 2025-10-06 00:34 | XMS_ITS | Encounter Summary ---
Author Organization [facility] Address [address] [place] [address] Care Team Providers Care Hematology Oncology Consultant Name Role Phone Evgeny Dixon MD Primary Care Provider [phone] Lei Ng MD Primary Care Provider Lei Ng MD Primary Care Provider Lei Ng MD Unavailable [phone] Evgeny Dixon MD Unavailable [phone] Encounter Details Date Type Department Care Team (Late st Contact Info) Description 05/22/2019 Lab Requisition [facility] Care DermPath Lab [address] [facility] [place] [address] Jarad Melo MD [address] [place] [address] Social History Tobacco Use Types Packs/Day Years Used Date Smoking Tobacco: Never Assessed Sex and Gender Information Value Date Recorded Sex Assigned at Not on file Legal Sex Male 11:50 AM CDT Gender Identity Not on file Sexual Orientation Not on file documented as of this encounter Plan of Treatment Not on file documented as of this encounter Procedures Procedure Name Priority Date/Time Associated Diagnosis Comments DERMATOPATHOLOGY Routine 05/21/2019 12:0 0 AM CDT documented in this encounter Results * DERMATOPATHOLOGY (05/21/2019 12:00 AM CDT) Case Report Dermatopathology Report Case: [id number] Authorizing Provider: Jarad Melo MD Collected: 05/21/2019 12:00 AM Pathologist: Candida Frazier MD Received: 05/22/2019 12:46 PM Specimen: Skin, post neck 1:54 PM CDT DERMATOPATHOLOGY LABORATORY Final Diagnosis Specimen A. SKIN, post neck: EPIDERMOID CYST (L72.0) 1:54 PM CDT DERMATOPATHOLOGY LABORATORY at 1354 CDT Clinical History R/O cyst. 1:54 PM CDT DERMATOPATHOLOGY LABORATORY Gross Description Specimen A: Received is one formalin filled container labeled with the patient's name and designated post neck. The specimen consists of a [id number] excision, bisected. Jar 0. 1:54 PM CDT [...] characteristic determined by the Dermatopathology Laboratory at [facility], directed by Dr. Anel Frazier. These tests need not be, and therefore are not, approved by the [place] Food and Drug Administration. The tests are used for clinical purposes. Billing Codes Specimen Charges Stain Charges 12689 1 1:54 PM CDT DERMATOPATHOLOGY LABORATORY Embedded Images 1:54 PM CDT DERMATOPATHOLOGY LABORATORY Pathology/Cytolog y TISSUE SPECIMEN FROM SKIN / Unknown 05/21/2019 05/22/2019 12:46 PM CDT Jarad Melo MD LAB - PATHOLOGY/CYTOLOGY ORD ERABLES Final Result DERMATOPATHOLOGY LABORATORY [facility] - Department of Dermatology [address] [facility] 5th Floor Lab [address] [phone] documented in this encounter Visit Diagnoses Not on filedocumented in this encounter Additional Health Concerns Infection Onset Date Last Indicated Resolved Time COVID-19 Under Investigation 07/12/2021 07/12/2021 07/12/2021 4:39 PM CDT documented as of this encounter Care Teams Hematology Oncology Consultant Relationship Specialty Start Date End Date Evgeny Dixon MD [address] [place] [place] [address] PCP - General 05/26/18 07/11/21 Lei Ng MD [address] [place] [address] PCP - General Family Medicine 07/12/21 07/18/21 Lei Ng MD [address] [place] [address] PCP - General 07/19/21 Lei Ng MD [address] [place] [address] Family Medicine 07/19/21 Evgeny Dixon MD [address] [place] [address] 07/12/21 documented as of this encounter
--- OUTSIDE RECORDS SUMMARY | 2025-10-06 00:34 | XMS_ITS | Clinical Summary ---
Author Organization [facility] Address [address] [facility] [place] [address] Care Team Providers Care Treating And Pumping Supervisor Name Role Phone Lei Ng MD Primary Care Provider Lei Ng MD Unavailable [phone] Evgeny Dixon MD Unavailable [phone] Source Comments [facility],non-owned Affiliates and Associated Physician Practices is amultiple site organization consisting of ambulatory clinics and hospital sitesin [place], [place], [place] and [place]. This disclosure is being madepursuant to the Care Everywhere program and may not contain all information available regarding this patient. Last updated 18.[facility] Allergies Active Allergy Reactions Criticality Noted Date Comments Penicillins Unknown 07/12/2021 Medications * Be aware that medications may not be up to date on this document. Alwaysverify current medications with the patient. lisinopril (PRINIVIL; ZESTRIL) 10 MG tablet Take [...] every day after a meal. Active Multiple Vitamins-[place]. Clair als (PRESERVISION AREDS 2 PO) Take 1 tablet by mouth 2 times daily Active vitamin D, cholecalcifero l, 50 MCG (2000 UT) tablet Take 1 (one) tablet by mouth once daily Active fexofenadine (DELANO) 180 MG tablet Take 1 (one) tablet by mouth once daily as needed for Allergies Active oxyCODONE, immediate release, (ROXICODONE) 5 MG tablet Take 1 (one) tablet by mouth every 6 hours as needed for Pain 24 tablet 1 Active acetaminophen (TYLENOL) 500 MG tablet Take 2 (two) tablets by mouth every 8 hours Maximum allowable Acetaminophen amount = 4 Grams (4000 mg) / 24 hours. 1 Active senna (SENOKOT EXTRA STRENGTH) 17.2 MG Take 17.2 mg by mouth once daily 14 tablet 1 Active Additional Information Patient not taking.Reported on 08/11/2021 fluticasone propionate (FLONASE) 50 MCG/ACT nasal spray [place] 1 (one) spray to 2 (two) sprays into the nose Active HYDROcodone-ac etaminophen (NORCO) 5-325 MG tablet Take 1 (one) tablet by mouth every 4 hours as needed pain 0 Active polyethylene glycol 3350 (MIRALAX) 17 GM/SCOOP powder MIX 17 GRAMS WITH 8 OZ LIQUID AND DRINK ONCE DAILY 0 Active saccharomyces (FLORASTOR EXTRA STR) 250 MG capsule Take 1 (one) capsule by mouth once daily Active sulfamethoxazo le-trimethopri m (BACTRIM DS; SEPTRA DS) 800-160 MG tablet Take 1 tablet by mouth 2 times daily 1 Active Active Problems Problem Noted Date Diagnosed [...] 1:29 PM CDT Height 177.8 cm (5' 10) 07/12/2021 12:01 PM CDT Body Mass Index [...] - Risk 60-74 years 1-dose series) 2010 DEPRESSION SCREENING 11/26/2024 MEDICARE AWV CALENDAR YEAR 2024 COVID-19 VACCINE (2024-2 6 season) 2025 02/21/2021, 01/24/2021 INFLUENZA VACCINE (#1) 2025 09/07/2020 HEPATITIS B VACCINE Aged Out No longe [...] patient's age to complete this topic Insurance MANAGED MEDICARE ADV MANAGED MEDICARE ADV [facility] MANAGED MEDICARE ADV MANAGED MEDICARE ADV MANAGED MEDICARE ADV AETNA AETNA [facility] MANAGED MEDICARE ADV [facility] MANAGED MEDICARE ADV AETNA UHC MANAGED MEDICARE ADV AETNA AETNA AETNA AETNA AETNA AETNA AETNA AETNA AETNA Advance Directives * Full Code (Latest Code Status on File) Date Activated Date Inactivated Comments 07/12/2021 2:00 PM 07/22/2021 12:31 PM Care Teams Treating And Pumping Supervisor Relationship Specialty Start Date End Date Lei Ng MD [address] [place] [address] PCP - General 07/19/21 Lei Ng MD [address] [place] [address] Family Medicine 07/19/21 Evgeny Dixon MD [address] [place] [address] 07/12/21
[2025-10-06 07:53] VITALS: BP 132/80; PULSE 66; RESP 16; TEMP 36.3; O2SAT 99
[2025-10-06] MEDS: LACTATED RINGERS 1,000 ML 150 ML IV CONT (08:07)
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
--- NOTE | 2025-10-06 09:33 | S_PTH ---
PATIENT: Mike Montana LOC: [facility] U#:[id number] AGE/SX: 74/M ROOM: RE10/06/[address]: Fuad Murray DO : 1950 BED: DIS: 10/06/2025 SPEC #: [id number] RECD: 10/06/25 09:37 STATUS: OLVIN REQ #: [id number] VIOLA: 10/06/25 09:[address]: Fuad Murray DEPT: [facility] Surgical RECD BY: Maame Pandey ENTERED: 10/06/25 09:37 SP TYPE: Surgical OTHR DR: Lei Ng MD Tissues: A - Colon Polypectomy Procedures: Hematoxylin and Eosin Stain Gross and Microscopic Level 4
[2025-10-06 09:36] VITALS: BP 95/55; PULSE 57; RESP 20; O2SAT 97
[2025-10-06 09:46] VITALS: BP 97/68; PULSE 60; RESP 19; O2SAT 100
[2025-10-06 09:56] VITALS: BP 134/80; PULSE 56; RESP 18; O2SAT 100
== END 2025-10-06 10:19 | disposition home or self-care (01) ==
PROVIDERS: PCP Family Medicine; Visit Provider Surgery
PROC: 0DJD8ZZ Inspection of Lower Intestinal Tract, Via Natural or Artificial Opening Endoscopic (ICD-10-PCS; CPT 45378; principal; 2025-10-06 09:00)
DX: Z12.11 Encounter for screening for malignant neoplasm of colon (principal); K63.5 Polyp of colon; K64.8 Other hemorrhoids; E78.5 Hyperlipidemia, unspecified; I10 Essential (primary) hypertension; E53.8 Deficiency of other specified B group vitamins; M81.0 Age-related osteoporosis without current pathological fracture; M17.11 Unilateral primary osteoarthritis, right knee; R01.1 Cardiac murmur, unspecified; N40.0 Benign prostatic hyperplasia without lower urinary tract symptoms; R56.9 Unspecified convulsions; M21.761 Unequal limb length (acquired), right tibia; H35.30 Unspecified macular degeneration; Z79.83 Long term (current) use of bisphosphonates; Z98.890 Other specified postprocedural states; Z97.8 Presence of other specified devices; Z85.72 Personal history of non-Hodgkin lymphomas; Z92.21 Personal history of antineoplastic chemotherapy; Z80.3 Family history of malignant neoplasm of breast; Z82.49 Family history of ischemic heart disease and other diseases of the circulatory system
CPT/HCPCS: 45380; 88305; J2003; J2704; J7120